=== PATIENT | female | born 1935 | race Caucasian/White ===

== ENCOUNTER 2017-06-30 07:45 | Inpatient (IN) | payer OTHER ==
[2017-08-03] MEDS ORDERED: Buffered Lidocaine 0.9% SYRIN* 5 ML/SYR SYRINGE INTRADERM ONE (13:21)
[2017-08-04] MEDS ORDERED: ceFAZolin 2 GM PREMIX (*) 2 GM/50 ML BAG IVPB ONE ×2 (06:44→14:28)
[2017-08-04] MEDS ORDERED: Buffered Lidocaine 0.9% SYRIN* 5 ML/SYR SYRINGE ONE (06:44)
[2017-08-04] MEDS ORDERED: Lidocaine 1% MPF wEPI 200,000* 30 ML SDV ONE (07:21)
[2017-08-04] MEDS ORDERED: Propofol* 10 MG/ML 20 ML BTL IV PUSH ONE ×3 (07:36→14:24)
[2017-08-04] MEDS ORDERED: Dexamethasone IV* 4 MG/ML 1 ML (4 MG) ONE (07:36)
[2017-08-04] MEDS ORDERED: fentaNYL* 50 MCG/ML 5 ML VIAL (250 MCG VIAL) ONE ×2 (07:36→12:49)
[2017-08-04] MEDS ORDERED: Succinylcholine* 20 MG/ML 10 ML VIAL ONE (07:36)
[2017-08-04] MEDS ORDERED: Midazolam* 1 MG/ML 2 ML VIAL (2 MG) ONE (07:37)
[2017-08-04] MEDS ORDERED: EPHEDrine (Pressors)* 50 MG/ML VIAL ONE (16:04)
[2017-08-04] MEDS ORDERED: Ondansetron INJ* 2 MG/ML VIAL ONE (16:04)
[2017-08-04] MEDS ORDERED: Magnesium Hydroxide LIQ* 30 ML UDC PO PRN (16:15)
[2017-08-04] MEDS ORDERED: Ondansetron INJ* 2 MG/ML VIAL IV PRN ×2 (16:15→17:01)
[2017-08-04] MEDS ORDERED: Acetaminophen TAB* 325 MG PO PRN (16:15)
[2017-08-04] MEDS ORDERED: fentaNYL* 50 MCG/ML 2 ML VIAL (100 MCG VIAL) IV PRN (17:01)
[2017-08-04] MEDS ORDERED: DiMENhydriNATE IV* 50 MG/ML VIAL IV PUSH PRN (17:01)
[2017-08-04] MEDS ORDERED: HYDROmorphone INJ* 1 MG/ML CARPUJECT SYRINGE IV PRN (17:01)
[2017-08-04] MEDS ORDERED: fentaNYL* 50 MCG/ML 2 ML VIAL (100 MCG VIAL) ONE (17:34)
[2017-08-04] MEDS: HYDROcodone/ACETAMIN 5-325 MG* 1 TAB PO PRN ×2 (18:55→23:06)
[2017-08-04] MEDS ORDERED: HYDROmorphone INJ* 2 MG/ML CARPUJECT SYRINGE IV SLOW PU PRN (19:02)
[2017-08-04] MEDS ORDERED: Cyclobenzaprine TAB* 10 MG PO PRN (19:06)
--- NOTE | 2017-08-04 19:56 | RAD ---
Edited for charges. INDICATION: Transforaminal lumbar interbody fusion. COMPARISON: C-arm fluoroscopy of the same date. TECHNIQUE: 6.23 seconds O arm fluoroscopy. 34.5 seconds C-arm fluoroscopy. FINDINGS: The OR and C-arm images document bilateral L4-L5 anterior and posterior spinal fusion. IMPRESSION: Procedural fluoroscopy. CPT II Codes: 6045F MTDD
[2017-08-05] MEDS: HYDROcodone/ACETAMIN 5-325 MG* 1 TAB PO PRN ×5 (03:29→21:19)
[2017-08-05] MEDS: Cetirizine* 10 MG TAB PO SCH (08:22)
[2017-08-05] MEDS: Losartan TAB* 25 MG PO SCH (08:22)
[2017-08-05] MEDS ORDERED: Aspirin EC Low Dose* 81 MG TAB.EC PO SCH (09:00)
--- NOTE | 2017-08-05 13:24 | PN ---
Progress Note - Progress Note Date of Service: 08/05/17 SOAP: Subjective: []No events ON. Patient is resting comfortably. Tolerates PO well. Ambulated to the bathroom. Left LE pain resolved. Objective: []VSS, Afebrile. Wound s,c,d. AAOx3, DEMETRIA, CN II-XII grossly intact. Motor 5/5 all extremities Sensory grossly intact to light touch. Assessment: []81 yof POD#1 Lt L4-5 MIS TLIF Plan: []Monitor VS, Neurochecks. Encourage ambulation. Brace ordered. Upright XR in brace. PT/OT DC planning Alfonso Dennis MD
--- NOTE | 2017-08-05 14:50 | RAD ---
Indication: 1 day postop L4-L5 fusion. Comparison: August 04, 2017 intraoperative spot images. June 15, 2017 Technique: Standing AP and lateral views lumbar sacral spine. Report: Postsurgical change of anterior and posterior L4-L5 fusion. Negative for spondylolisthesis at any level. Unchanged mild LEFT convex curve at the thoracic lumbar junction and RIGHT convex curve at the lumbar sacral junction. Negative for fracture. Unremarkable paraspinal soft tissue contours. The bladder fossa level surgical clips. IMPRESSION: Unremarkable standing AP and lateral views following L4-L5 anterior and posterior fusion.
--- NOTE | 2017-08-05 22:16 | OP ---
DATE OF OPERATION: 08/04/17 - ROOM #[id number] DATE OF : 39 SURGEON: Pablo Dennis MD ANESTHESIOLOGIST: Michael Terrell MD ANESTHESIA: General. PRE-OP DIAGNOSIS: Degenerative disk disease L4-5. POST-OP DIAGNOSIS: Degenerative disk disease L4-5. OPERATIVE PROCEDURE: The patient underwent a left minimally invasive L4-5 TLIF with PEEK interbody cage with autologous iliac bone graft DBX and intraoperative navigation and monitoring with L4, L5 pedicle screws. ESTIMATED BLOOD LOSS: 75 cc. COMPLICATIONS: None. SUMMARY: The patient is a very pleasant 81-year-old female with complaints of back pain radiating to the left lower extremity with MRI findings consistent with multilevel degenerative disk disease worse at L4-5 with severe left L4-5 neuroforaminal stenosis, far lateral dyskinesia and significant loss of disk height. After failing conservative treatment modalities, she was offered the option of surgical intervention. After explaining all expectations, limitation , possible complications of the procedure, with complications included but not limited to bleeding, infection, risk of injury to adjacent structures, paralysis , , need for additional procedures, anesthesia risk, stroke, blindness, cancer, instability, pseudoarthrosis, need for additional procedures, adjacent level disease, the patient and her agreed and informed consent was obtained. They also understood that her condition may not improve and in fact may get worse after the surgery and she may need to have additional procedure in the future. The case was done with the assistance of MIKE Ortiz, because of the complexity of the case. They also understood that intraoperative plan may be modified according to intraoperative findings and conditions. DESCRIPTION OF PROCEDURE: The patient was brought to the operating room and was placed under general anesthesia by the anesthesia team. She was carefully positioned prone on the Paulo frame and all bony prominences were meticulously padded. Her skin was prepped and draped in the standard fashion. After appropriate surgical pause and the patient identification, a small incision was made over the left iliac crest and a Corex trocar was used to harvest iliac bone graft. Through the same skin incision, the pane for the navigation star was secured and intraoperative OR imaging was obtained and the patient later was transferred to the navigation platform. The correct operative level was identified and a left paramedian incision was performed on the skin with the assistance of intraoperative navigation. The incision was carried down to the dorsal fascia with use of Bovie cautery. Over a series of dilators, the METRx tubular retractor was inserted and the position was confirmed with intraoperative monitoring. The intraoperative microscope was brought into the field and the left L4-5 facet as well as the left L4 and L5 transverse processes were visualized and exposed. High speed drill and Kerrison punches were used to perform a partial lateral facetectomy at L4-5 and exposure of the superior aspect of the pedicle of L4. The disk space was identified and was found to have a significant amount of calcification while lateral extruded disk fragment was removed with pituitary rongeurs. The annulus fibrosus was incised with a #15 surgical blade and after placement of a thin navigated osteotome into the disk space, the disk space was prepared with the use of a series of scrapers, dilators, and pituitary rongeurs, Kerrison punches, and curettes. After the diskectomy and the preparation of the disk space was performed, a series of trials were used and a 10 mm trial was found to be the most appropriate size for this case. A PEEK PTC Capstone Medtronic cage filled with autologous and local bone graft from the facetectomy as well as DBX putty was inserted after stereotactic navigation after the disk space was filled with the residual autologous bone graft and the DBX putty. Intraoperative fluoroscopic imaging confirmed excellent placement of the interbody cage and a second OM imaging was obtained, which also confirmed excellent placement of the hardware. The trajectories of the pedicle screws into the skin was then assessed with the use of intraoperative navigation and a right paramedian incision over these trajectories was performed after infiltrating the skin with local anesthetic. A navigated drill guide was introduced and under stereotactic navigation and confirmation of AP fluoroscopy, the pedicles of L4 and L5 were cannulated. After placement of guidewires, 6.5 x 45 mm Medtronic pedicle screws were inserted. Intraoperative OM imaging was then obtained and confirmed excellent placement of all hardware. Two cobalt chrome rods were then inserted through the same incisions and secured in place with screw head caps. Intraoperative fluoroscopic imaging confirmed excellent placement of all hardware. After removal of the pedicle screws extensions as well as the navigation star, the wounds were copiously irrigated and after confirmation of meticulous hemostasis and inspection of the wounds, the wounds were closed by layers with 0 interrupted Vicryl sutures to approximate the fascia and 2-0 interrupted Vicryl suture to approximate the subcutaneous tissue and 4-0 Monocryl to approximate the skin and subcuticular layer. The skin was then covered with Steri-Strips and sterile dressings. At the end of the procedure, all counts were reported to be correct. The patient remained hemodynamically stable throughout the case. She was then turned supine, was extubated and was transferred to Recovery in excellent condition. [id number]/[facility] #: [id number] [facility] HOSPITALRosette
[2017-08-06] MEDS: HYDROcodone/ACETAMIN 5-325 MG* 1 TAB PO PRN ×3 (02:46→10:24)
[2017-08-06] MEDS: Cetirizine* 10 MG TAB PO SCH (09:07)
[2017-08-06] MEDS: Losartan TAB* 25 MG PO SCH (09:07)
--- NOTE | 2017-08-06 10:39 | PN ---
Progress Note - Progress Note Date of Service: 08/06/17 SOAP: Subjective: []POD # 2 Doing well Pre op leg pain better C/O incisional pain Objective: []Neuro intact Dressing dry Has brace to wear Assessment: []Satis post op course Plan: []D/C today D/C instructions given
[2017-08-06 11:53] VITALS: BP 128/43
== END 2017-08-06 13:15 | disposition home or self-care (01) | DRG 304 ==
LOC: AA 08-04 06:45 → SSU 08-04 18:32
PROVIDERS: ADMIT Neurological Surgery; ATTEND Neurological Surgery
PROC: 0SG00AJ Fusion of Lumbar Vertebral Joint with Interbody Fusion Device, Posterior Approach, Anterior Column, Open Approach (ICD-10-PCS; principal; 2017-08-04 07:45)
DX: M48.062 Spinal stenosis, lumbar region with neurogenic claudication (principal); M41.9 Scoliosis, unspecified; M43.16 Spondylolisthesis, lumbar region; M51.16 Intervertebral disc disorders with radiculopathy, lumbar region; I10 Essential (primary) hypertension; K59.00 Constipation, unspecified; K31.9 Disease of stomach and duodenum, unspecified; Z88.1 Allergy status to other antibiotic agents; Z79.1 Long term (current) use of non-steroidal anti-inflammatories (NSAID); Z79.82 Long term (current) use of aspirin; Z79.899 Other long term (current) drug therapy
CPT/HCPCS: 72100; 76000; 76001; A9270-GY; J0330; J0690; J1100; J2001; J2250; J2405; J2704; J3010

== ENCOUNTER 2018-08-05 08:58 | Emergency (ER) | payer MEDICARE ==
[2018-08-05 09:14] VITALS: BP 114/71
--- NOTE | 2018-08-05 09:45 | UC ---
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 states she has had sinus infections befoere and sx are c/w prev dx. normally takes amox for this. no wheezing.. non- smoker. no asthma. tmaz 100. + chills. fatigue. glands swollen mildly in neck. + PND - History of Current Complaint Chief Complaint: UCGeneralIllness Stated Complaint: COUGH,SINUS COMPLAINT Time Seen by Provider: 08/05/18 09:20 Hx Last Menstrual Period: n/a Pain Intensity: 6 - Allergies/Home Medications Allergies/Adverse Reactions: Allergies Allergy/AdvReac Type Severity Reaction Status Date / Time ciprofloxacin AdvReac GI Upset Verified 08/05/18 09:10 PMH/Surg Hx/FS Hx/Imm Hx Previously Healthy: Yes Cardiovascular History: Hypertension Other History Of: Negative For: HIV, Hepatitis B, Hepatitis C, Anticoagulant Therapy - Surgical History Surgical History: Yes Surgery Procedure, Year, and Place: HYSTERECTOMY [place]. GALLBLADDER [place]. back surgery 2016 - Family History Known Family History: Negative: Respiratory Disease - no asthma - Social History Alcohol Use: None Substance Use Type: None Substance Use Comment - Amount & Last Used: tramadol Smoking Status (MU): Never Smoked Tobacco Have You Smoked in the Last Year: No - Immunization History Most Recent Influenza Vaccination: Fall 2013 Most Recent Pneumonia Vaccination: unknown but she says she has had it Review of Systems All Other Systems Reviewed And Are Negative: Yes Constitutional: Positive: Fever, Chills, Fatigue Skin: Positive: Negative Eyes: Positive: Negative ENT: Positive: Sore Throat, Ear Ache, Nasal Discharge, Sinus Congestion, Sinus Pain/Tenderness Respiratory: Positive: Cough - mild Cardiovascular: Positive: Negative Gastrointestinal: Positive: Negative Genitourinary: Positive: Negative Motor: Positive: Negative Neurovascular: Positive: Negative Musculoskeletal: Positive: Negative Neurological: Positive: Negative Psychological: Positive: Negative Is Patient Immunocompromised?: No Physical Exam Triage Information Reviewed: Yes Appearance: Ill-Appearing - mild. appears much younger than stated age Vital Signs: Initial Vital Signs Temp 98.2 F 08/05/18 09:09 Pulse 84 08/05/18 09:09 Resp 16 08/05/18 09:09 BP 114/71 08/05/18 09:09 Pulse Ox 100 08/05/18 09:09 Vital Signs Reviewed: Yes Eye Exam: Normal ENT: Positive: Pharyngeal erythema - mild, + PND, TMs normal, Hoarse voice, Sinus tenderness, Uvula midline. Negative: Tonsillar swelling, Tonsillar exudate Dental Exam: Normal Neck exam: Normal Neck: Positive: Supple, Nontender, No Lymphadenopathy Respiratory Exam: Normal Respiratory: Positive: Lungs clear, Normal breath sounds, No respiratory distress, No accessory muscle use. Negative: Crackles, Rhonchi, Stridor, Wheezing Cardiovascular Exam: Normal Cardiovascular: Positive: RRR, No Murmur, Pulses Normal, Brisk Capillary Refill Abdomen Description: Positive: Nontender, Soft Musculoskeletal Exam: Normal Neurological Exam: Normal Psychological Exam: Normal Skin Exam: Normal Throat Pain/Nasal Course/Dx - Differential Dx/Diagnosis Differential Diagnosis/HQI/PQRI: Pharyngitis, Sinusitis, Tonsillitis, URI Provider Diagnosis: Sinusitis Discharge - Sign-Out/Discharge Documenting (check all that apply): Patient Departure All imaging exams completed and their final reports reviewed: No Studies - Discharge Plan Condition: Stable Disposition: HOME Prescriptions: Amoxicillin PO (*) [Amoxicillin 875 MG (*)] 875 mg PO BID #20 tab Patient Education Materials: Sinusitis (ED) Referrals: Cory Sanford MD [Primary Care Provider] - 1 Week Additional Instructions: Continue taking the probiotic daily while you are on the antibiotics. Flonase nasal spray that is OTC may be helpful as well. - Billing Disposition and Condition Condition: STABLE Disposition: Home
== END 2018-08-05 09:55 | disposition home or self-care (01) ==
LOC: UCCORT 08:58
DX: J32.9 Chronic sinusitis, unspecified (principal); Z88.1 Allergy status to other antibiotic agents; I10 Essential (primary) hypertension
CPT/HCPCS: 99212; G0463

== ENCOUNTER 2019-02-25 15:30 | Emergency (ER) | payer MEDICARE ==
--- NOTE | 2019-02-25 15:46 | UC ---
Skin Complaint HPI - HPI Summary HPI Summary: Patient is a 83 year old female , who present today with wasp bite 1 hr [employer] on her right hand and the left ankle. Has swelling and pain locally . Denies any other symptoms- fever, chills, cough chest pain or shortness of breath . No diaphoresis. Denies any abdominal pain , nausea or vomiting , diarrhea or constipation. Her frient gave her 2 tab of benadryl. - History of Current Complaint Time Seen by Provider: 02/25/19 15:42 Stated Complaint: WASP BITE Hx Obtained From: Patient Hx Last Menstrual Period: n/a - Allergy/Home Medications Allergies/Adverse Reactions: Allergies Allergy/AdvReac Type Severity Reaction Status Date / Time ciprofloxacin AdvReac GI Upset Verified 02/25/19 15:48 PMH/Surg Hx/FS Hx/Imm Hx - Additional Past Medical History Additional PMH: Past Medical History: Past Surgical history: Family history: non contributory Social history; Non smoker, no alcohol use , no substance abuse. Previously Healthy: Yes Other History Of: Negative For: HIV, Hepatitis B, Hepatitis C, Anticoagulant Therapy - Surgical History Surgical History: Yes Surgery Procedure, Year, and Place: [place]ERECTOMY [place]. [place]. back surgery 2017 - Family History Known Family History: Positive: None, Non-Contributory Negative: Respiratory Disease - no asthma - Social History Alcohol Use: None Substance Use Type: None Substance Use Comment - Amount & Last Used: tramadol Smoking Status (MU): Never Smoked Tobacco Have You Smoked in the Last Year: No - Immunization History Most Recent Influenza Vaccination: Fall 2013 Most Recent Pneumonia Vaccination: unknown but she says she has had it Review of Systems All Other Systems Reviewed And Are Negative: Yes Constitutional: Positive: Negative Skin: Positive: Other - swelling and redness of the right hand and left ankle Eyes: Positive: Negative ENT: Positive: Negative Respiratory: Positive: Negative Cardiovascular: Positive: Negative Gastrointestinal: Positive: Negative Genitourinary: Positive: Negative Motor: Positive: Negative Neurovascular: Positive: Negative Musculoskeletal: Positive: Negative Neurological: Positive: Negative Psychological: Positive: Negative Is Patient Immunocompromised?: No Physical Exam - Summary Physical Exam Summary: Vital Signs Reviewed: Yes A+Ox3, no distress Eyes: Conjunctiva Clear ENT: Hearing grossly normal neck: supple Respiratory: Positive: No respiratory distress, No accessory muscle use Cardiovascular: skin color reflect adequate perfusion Musculoskeletal Exam: DARNELL x 4 without difficulty Neurological: Positive: Alert, ambulatory without difficulty Psychological: Positive: Normal Response To Family Skin: Positive: swelling and redness of the right hand at the index and middle finger- proximal phalanx and the index and middle finger PIP joint and left ankle- lateral aspect. Pain and limitation of the PIP and MCP joint of the PIP joint of the index and middle finger. Triage Information Reviewed: Yes Vital Signs Reviewed: Yes Course/Dx - Course Course Of Treatment: During the visit today, we discussed the findings . No sign of anaphyllaxis. 1 dose of solumedrol im and famotidine given, and further plan discussed. . I will prescribe the medication( zantac and prednisone) to the pharmacy . She will follow up with PCP - has an appointment tomorrow. Red flags discussed. Strict return precautions. Patient expressed understanding . - Diagnoses Provider Diagnosis: Wasp sting Discharge - Sign-Out/Discharge Documenting (check all that apply): Patient Departure All imaging exams completed and their final reports reviewed: No Studies - Discharge Plan Condition: Stable Disposition: HOME Prescriptions: predniSONE [Prednisone 20 MG TAB] 40 mg PO DAILY 5 Days #10 tablet Ranitidine TAB (NF) [Zantac TAB (NF)] 150 mg PO BID 7 Days #15 tab Patient Education Materials: Insect Bite or Sting (ED), Anaphylaxis (ED), Allergies (ED) Referrals: Croy Sanford MD [Primary Care Provider] - 1 Day Additional Instructions: Start taking prednisone and zantac as prescribed. Take benadryl 50 mg every 6 hrs as needed. Strict return precautions. Follow up with your primary care doctor tomorrow . Patients blood pressure slightly high in Urgent care today , plan follow up with PCP for better control within 1 month Return to Urgent care / ER if symptoms get worse. - Billing Disposition and Condition Condition: STABLE Disposition: Home
[2019-02-25 15:48] VITALS: BP 197/67
[2019-02-25] MEDS ORDERED: methylPREDNISolone 125 MG* 2 ML VIAL IM ONE (16:03)
[2019-02-25] MEDS ORDERED: Famotidine TAB* 20 MG PO ONE (16:04)
== END 2019-02-25 16:34 | disposition home or self-care (01) ==
LOC: UCCORT 15:30
DX: T63.461A Toxic effect of venom of wasps, accidental (unintentional), initial encounter (principal); M79.89 Other specified soft tissue disorders; M79.641 Pain in right hand; M25.572 Pain in left ankle and joints of left foot; Y92.9 Unspecified place or not applicable; Z88.1 Allergy status to other antibiotic agents
CPT/HCPCS: 96372; 99212; A9270-GY; G0463; J2930

== ENCOUNTER 2019-08-28 05:32 | Inpatient (IN) | payer MEDICARE, OTHER ==
[~2019-08-28 05:32] MED LIST: Buffered Lidocaine 1% SYRIN* 1 ML/SYRINGE INTRADERM ONE
--- OUTSIDE RECORDS SUMMARY | 2019-08-28 05:34 | XMS REPORT | Continuity of Care Document ---
:1935 External Reference #:[id number] Author Name Pablo Dennis MD (transmitted by agent of provider Cassie Azar ) Address [address] [place] [address] Care Team Providers Name Role Phone Cory Sanford MD - Internal Medicine Care Team Information Database Software Technician [phone] Problems Active Problems Provider Date Lumbar radiculopathy Germán Medrano M.D. Onset: 04/13/2017 Spinal stenosis of lumbar region Germán Medrano M.D. Onset: 04/27/2017 Scoliosis deformity of spine Germán Medrano M.D. Onset: 04/27/2017 Spinal stenosis, lumbar region without Germán Medrano M.D. Onset: 05/25/2017 neurogenic claudication Lumbar spondylolisthesis Pablo Dennis MD Onset: 06/15/2017 Displacement of lumbar intervertebral disc Pablo Dennis MD Onset: without myelopathy Stenosis of lateral recess of lumbar spine Pablo Dennis MD Onset: Thoracic and lumbosacral neuritis Pablo Dennis MD Onset: 08/02/2017 Neurogenic claudication Pablo Dennis MD Onset: 04/11/2019 Social History Type Date Description Comments Sex Unknown ETOH Use Denies alcohol use Tobacco Use Start: Unknown Patient has never smoked Recreational Drug Use Denies Drug Use Smoking Status Reviewed: 08/24/19 Patient has never smoked Exercise Type/Frequency Exercises sporadically Allergies, Adverse Reactions, Alerts Active Allergies Reaction Severity Comments Date Ciprofloxacin 04/08/2017 Medications Active Medications SIG Qnty Indications Ordering Provider Date Calcium & Magnesium 1 po qd Unknown 750-465mg Tablets Vitamin C 1 po bid 60units Unknown 500mg Chewtabs Vitamin D/Vitamin E 1 po qday Unknown Fish Oil 1 by mouth 180caps Unknown 1000mg Capsules twice a day DR Losartan Potassium 1 by mouth 90tabs Unknown 100mg every day Tablets Aspirin 1 by mouth Unknown 81mg Chewtabs every day Amelia Allergy 1 by mouth Unknown 180mg every day Tablets Colon Herbal Cleanser 1 po qday Unknown Capsules Tylenol 8 Hour one every 6 Unknown Arthritis Pain hours as needed 650mg for pains Tablets ER Furosemide 1 tab daily Cory Sanford MD 40mg Tablets Diclofenac Sodium 2 times daily Cory Sanford MD 75mg Tablets Hydralazine HCL 1 by mouth Unknown 10mg three times a Tablets day Citalopram 0.5 tab by Unknown Hydrobromide mouth every day 10mg Tablets Immunizations Description No Information Available Vital Signs Date Vital Result Comment 08/24/2019 12:56pm Height 63 inches 5'3" Weight 142.00 lb Heart Rate 64 /min BP Systolic 168 mmHg BP Diastolic 80 mmHg Pain Level 7 BMI (Body Mass Index) 25.2 kg/m2 07/09/2019 11:20am Height 63 inches 5'3" Weight 143.00 lb Heart Rate 64 /min BP Systolic 166 mmHg BP Diastolic 88 mmHg Respiratory Rate 16 /min Body Temperature 96.8 F Pain Level 7 O2 % BldC Oximetry 98 % BMI (Body Mass Index) 25.3 kg/m2 Results Test Acquired Date Facility Test Result H/L Range Note CBC No Diff 08/14/2019 [facility] White Blood 3.3 10^3/uL Low 3.5-10.[address] [place] [address] [phone] Red Blood Count 3.63 10^6/uL Low 3.70-4.87 Hemoglobin 11.8 g/dL Low 12.0-16.0 Hematocrit 34 % Low 35-47 Mean Corpuscular Volume 94 fL Normal 80-97 Mean Corpuscular Hemoglobin 33 pg High 27-31 Mean Corpuscular HGB Conc 35 g/dL Normal 31-36 Red Cell Distribution Width 13 % Normal 10-15 Platelet Count 279 10^3/uL Normal 150-450 Mean Platelet Volume 7.8 fL Normal 7.4-10.4 Inr/Protime 08/14/2019 [facility] Inr 0.96 Normal 0.82-1.09 1 [address] [place] [address] [phone] Laboratory test 08/14/2019 [facility] Partial 30.0 Normal 26.0 -38.[address] [place] [address] [place] [address] Time PTT [phone] Urinalysis 08/14/2019 [facility] Urine Color Yellow Profile [address] [place] [address] [phone] Urine Appearance Clear Urine Specific [place] 1.009 Low 1.010-1.030 Urine pH 7.0 Normal 5-9 Urine Urobilinogen Negative Negative Urine Ketones Negative Negative Urine Protein Negative Negative Urine Leukocytes Negative Negative Urine Blood Negative Negative * * Abnormal Negative 2 Urine Nitrite Negative Negative Urine Bilirubin Negative Negative Urine Glucose Negative Negative Basic Metabolic 08/14/2019 [facility] Sodium 134 mmol/L Low 135-[address] [place] [address] [phone] Potassium 4.3 mmol/L Normal 3.5-5.0 Chloride 98 mmol/L Low 101-111 Co2 Carbon Dioxide 29 mmol/L Normal 22-32 Anion Gap 7 mmol/L Normal 2-11 Glucose 97 mg/dL Normal 70-100 Blood Urea Nitrogen 24 mg/dL Normal 6-24 Creatinine 1.23 mg/dL High 0.51-0.95 BUN/Creatinine Ratio 19.5 Normal 8-20 Calcium 9.5 mg/dL Normal 8.6-10.3 Egfr Non- 41.9 >60 Egfr 50.7 >60 3 Type & Screen 08/14/2019 [facility] Patient Blood Type A Positive [address] [place] [address] [phone] Antibody Screen NEGATIVE 1 Standard intensity warfarin therapeutic range: 2.0-3.0 High intensity warfarin therapeutic range: 2.5-3.5 2 *Ascorbic acid is present which may interfere with detection of blood. 3 Because ethnic data is not always readily available, this report includes an eGFR for both -Americans and non- Americans. The National Kidney Disease Education Program (NKDEP) does not endorse the use of the MDRD equation for patients that are not between the ages of 18 and 70, are , have extremes of body size, muscle mass, or nutritional status, or are non- or non-. According to the National Kidney Foundation, irrespective of diagnosis, the stage of the disease is based on the level of kidney function: Stage Description GFR(mL/min/1.73 m(2)) 1 Kidney damage with normal or decreased GFR 90 2 Kidney damage with mild decrease in GFR 60-89 3 Moderate decrease in GFR 30-59 4 Severe decrease in GFR 15-29 5 Kidney failure <15 (or dialysis) Procedures Date Code Description Status 05/15/2019 350005307 Bone Mineral Density Test Completed Medical Devices Description No Information Available Encounters Type Date Location Provider Dx Diagnosis Office Visit 07/09/2019 [facility] M51.16 Intervertebral disc 11:[facility] MD disorders w radiculopathy, lumbar region M41.9 Scoliosis, unspecified M48.062 Spinal stenosis, lumbar region with neurogenic claudication Office 06/08/2019 [facility] M51.16 Intervertebral disc Visit 9:00a [facility] MD disorders w radiculopathy, lumbar region M48.062 Spinal stenosis, lumbar region with neurogenic claudication M41.9 Scoliosis, unspecified M43.16 Spondylolisthesis, lumbar region M51.16 Intervertebral disc disorders w radiculopathy, lumbar region Office 04/11/2019 [facility] M51.16 Intervertebral disc Visit 3:00p [facility] MD disorders w radiculopathy, lumbar region M48.062 Spinal stenosis, lumbar region with neurogenic claudication M41.9 Scoliosis, unspecified M43.16 Spondylolisthesis, lumbar region M51.16 Intervertebral disc disorders w radiculopathy, lumbar region Assessments Date Code Description Provider 07/19/2019 M51.16 Intervertebral disc disorders with Pablo Dennis MD radiculopathy, lumbar region 07/19/2019 M48.062 Spinal stenosis, lumbar region with Pablo Dennis MD neurogenic claudication 07/19/2019 M41.9 Scoliosis, unspecified Pablo Dennis MD 07/09/2019 M51.16 Intervertebral disc disorders with Pablo Dennis MD radiculopathy, lumbar region 07/09/2019 M41.9 Scoliosis, unspecified Pablo Dennis, 07/09/2019 M48.062 Spinal stenosis, lumbar region with Pablo Dennis , neurogenic claudication 06/08/2019 M51.16 Intervertebral disc disorders with Pablo Dennis MD radiculopathy, lumbar reg 06/08/2019 M48.062 Spinal stenosis, lumbar region with Pablo Dennis , neurogenic claudication 06/08/2019 M41.9 Scoliosis, unspecified Pablo Dennis, 06/08/2019 M43.16 Spondylolisthesis, lumbar region Pablo Dennis MD 06/08/2019 M51.16 Intervertebral disc disorders with Pablo Dennis MD radiculopathy, lumbar region 04/11/2019 M51.16 Intervertebral disc disorders with Pablo Dennis MD radiculopathy, lumbar reg 04/11/2019 M48.062 Spinal stenosis, lumbar region with Pablo Dennis MD neurogenic claudication 04/11/2019 M41.9 Scoliosis, unspecified Pablo Dennis, 04/11/2019 M43.16 Spondylolisthesis, lumbar region Pablo Dennis MD 04/11/2019 M51.16 Intervertebral disc disorders with Pablo Dennis MD radiculopathy, lumbar region Plan of Treatment Future Appointment(s):08/28/2019 7:30 am - Pablo Dennis MD at [facility]10/03/2019 8:30 am - Pablo Dennis MD at [facility]09/05/2019 12:30 pm - Pablo Dennis MD at [facility]12/07/2019 10:30 am - Pablo Dennis MD at [facility] Functional Status Description No Information Available Mental Status Description No Information Available Referrals Description No Information Available
--- OUTSIDE RECORDS SUMMARY | 2019-08-28 05:34 | XMS REPORT | Summary of Care ---
:1935 Author Organization [facility] Address [address] [place] [id number] Care Team Providers Name Role Phone Cory Sanford MD Primary Care Provider Reason for Visit Reason Comments New Patient Encounter Details Date Type Department Care Team Description 07/05/2019 Office Visit Aidee Jessica MD Polyarthralgia Rheumatology 90 [facility] (Primary Dx) [address] [place] [address] [address] [address] [place] [address] [phone] Allergies Active Allergy Reactions Severity Noted Date Comments Ciprofloxacin 05/24/2019 documented as of this encounter (statuses as of 07/05/2019) Medications Medication Sig Dispensed Refills Start Date End Date Status vitamin C (ASCORBIC Take 500 mg 0 Active ACID) 500 MG tablet by mouth Twice Daily aspirin 81 MG tablet Take 81 mg 0 Active by mouth daily [id number] Take by 0 Active TAMIN D PO mouth Twice Daily citalopram (CELEXA) Take 10 mg 0 Active 10 MG tablet by mouth daily diclofenac Take 50 mg 0 Active (VOLTAREN) 50 MG EC by mouth Two tablet times daily as needed fexofenadine Take 180 mg 0 Active (NIESHA) 180 MG by mouth tablet daily fluticasone 1 spray by 0 Active (FLONASE) 50 MCG/ACT Nasal route nasal spray daily hydrALAZINE Take 10 mg 0 Active (APRESOLINE) 10 MG by mouth tablet Three times daily as needed losartan (COZAAR) 50 Take 50 mg 0 Active MG tablet by mouth daily Probiotic Product Take by 0 Active (PROBIOTIC COLON mouth SUPPORT PO) CRANBERRY PO Take by 0 Active mouth Twice Daily vitamin E 400 UNIT Take 400 0 Discontinued (No capsule Units by 9 longer needed) mouth daily furosemide (LASIX) Take 40 mg 0 Discontinued (No 40 MG tablet by mouth as 9 longer needed) needed LORazepam (ATIVAN) Take 0.5 mg 0 Discontinued (No 0.5 MG tablet by mouth 9 longer needed) every 6 (six) hours as needed for Anxiety Cholecalciferol Take by 0 Discontinued (No (VITAMIN D PO) mouth daily 9 longer needed) documented as of this encounter (statuses as of 07/05/2019) Active Problems Problem Noted Date Polyarthralgia 07/05/2019 documented as of this encounter (statuses as of 07/05/2019) Social History Tobacco Use Types Packs/Day Years Used Date Never Smoker 0 Smokeless Tobacco: Never Used Tobacco Cessation: Counseling Given: No Alcohol Use Drinks/Week oz/Week Comments Never Alcohol Habits Answer Date Recorded How often do you have a drink containing alcohol? Never 05/24/2019 How many drinks containing alcohol do you have on a typical Not asked day when you are drinking? How often do you have six or more drinks on one occasion? Not asked Sex Assigned at Date Recorded Not on file Job Start Date Occupation Industry Not on file Not on file Not on file Travel History Travel Start Travel End No recent travel history available. documented as of this encounter Last Filed Vital Signs Vital Sign Reading Time Taken Comments Blood Pressure 148/80 07/05/2019 3:56 PM EST Pulse 70 07/05/2019 3:56 PM EST Temperature 36.6 07/05/2019 3:56 PM EST C (97.9 F) Respiratory Rate 15 07/05/2019 3:56 PM EST Oxygen Saturation 96% 07/05/2019 3:56 PM EST Inhaled Oxygen Concentration - - Weight 71.7 kg (158 lb) 07/05/2019 3:56 PM EST Height 160 cm (5' 3") 07/05/2019 3:56 PM EST Body Mass Index 27.99 07/05/2019 3:56 PM EST documented in this encounter Progress Notes Aidee Peña MD - 07/05/2019 12:45 PM EST Subjective: Patient ID: Funmilayo Gray is a 83 y.o. female. HPI Patient's medications, allergies, past medical, surgical, social and family histories were reviewed and updated as appropriate. This is initial rheumatology consult requested by primary care doctor for diagnosis and management of left knee pain. Dictation on: 07/05/2019 4:00 PM by: AIDEE PEÑA [[id number]] Daughter has rheumatoid arthritis. Review of Systems Per HPI. Review of complete ROS is negative. Denies skin rash, oral ulcer, chest pain, SOB, abdominal pain, diarrhea, constipation, dysuria, hematuria, headache. Denies photosensitivity and Raynaud' s. Past Medical History: Diagnosis Date Anxiety Arthritis Depression GERD (gastroesophageal reflux disease) Hypertension Past Surgical History: Procedure Laterality Date BREAST SURGERY HYSTERECTOMY SPINE SURGERY Family History Problem Relation Age of Onset Heart disease Father Cancer Mother Social History Tobacco Use Smoking status: Never Smoker Smokeless tobacco: Never Used Substance Use Topics Alcohol use: Never Frequency: Never Drug use: Never Ciprofloxacin Current Outpatient Medications Medication Sig Dispense Refill aspirin 81 MG tablet Take 81 mg by mouth daily RHRODYS-THYPIEDRI-[id number] D PO Take by mouth Twice Daily citalopram (CELEXA) 10 MG tablet Take 10 mg by mouth daily CRANBERRY PO Take by mouth Twice Daily diclofenac (VOLTAREN) 50 MG EC tablet Take 50 mg by mouth Two times daily as needed fexofenadine (NIESHA) 180 MG tablet Take 180 mg by mouth daily fluticasone (FLONASE) 50 MCG/ACT nasal spray 1 spray by Nasal route daily hydrALAZINE (APRESOLINE) 10 MG tablet Take 10 mg by mouth Three times daily as needed losartan (COZAAR) 50 MG tablet Take 50 mg by mouth daily Probiotic Product (PROBIOTIC COLON SUPPORT PO) Take by mouth vitamin C (ASCORBIC ACID) 500 MG tablet Take 500 mg by mouth Twice Daily Cholecalciferol (VITAMIN D PO) Take by mouth daily furosemide (LASIX) 40 MG tablet Take 40 mg by mouth as needed LORazepam (ATIVAN) 0.5 MG tablet Take 0.5 mg by mouth every 6 (six) hours as needed for Anxiety vitamin E 400 UNIT capsule Take 400 Units by mouth daily No current facility-administered medications for this visit. Objective: Physical Exam Visit Vitals BP 148/80 Pulse 70 Temp 36.6 C (97.9 F) (Tympanic) Resp 15 Ht 1.6 m (5' 3") Wt 71.7 kg (158 lb) SpO2 96% BMI 27.99 kg/m HEENT: no facial erythema, hearing grossly intact. Chest exam: clear to auscultation, no wheezing orcrackles. Good airway entry. Heart exam: regular rate and rhythm, S1, S2 present, no murmur, rub, gallop. Extremities no cyanosis , clubbing or edema. Neuro exam: AAO*3, no focal deficits. Skin exam: Nopsoriasis or vasculitis skin rash. Joint exam: No active synovitis in both upper and lower extremityjoints except both knees mild crepitus. Lower back 2 vertical surgical scar. Very limited ROM. Data reviewed: I personally reviewed old chart, labs in Epic, note and other clinical date from her PCP office. Assessment: 1. Left leg and knee pain. Knee OA vs radiculopathy. Family history of RA. 2. Severe lower back pain. S/P back surgery in 08/2017. Pending another surgery. 3. HTN. 4. Osteoporosis. Plan: - Funmilayo was seen today for new patient. Diagnoses and all orders for this visit: Polyarthralgia - JOSE; Future - JOSE Specificity; Future - Rheumatoid factor; Future - CCP antiBody; Future - Sedimentation rate, automated; Future - Comprehensive Metabolic Panel; Future - CBC and Differential; Future - CBC and Differential - Comprehensive Metabolic Panel - Sedimentation rate, automated - CCP antiBody - Rheumatoid factor - JOSE Specificity - JOSE - Will discuss further management on next visit. - Activities as tolerated. - Diet: Paleo diet ( no sugar, no diary, low carb diet) , more greens/vegetables , adequate hydration. - Encouraged to maintain good sleep hygiene. - Continue other medications as prescribed by PCP and other specialist. - RV based on results; above findings, analysis and plan were all discussed with the patient and questions were answered as much as possible. Thanks for the consult. documented in this encounter Plan of Treatment Name Type Priority Associated Diagnoses Order Schedule JOSE Lab Routine Polyarthralgia 1 Occurrences starting 07/05/2019 until 01/05/2020 JOSE Specificity Lab Routine Polyarthralgia 1 Occurrences starting 07/05/2019 until 01/05/2020 Rheumatoid factor Lab Routine Polyarthralgia 1 Occurrences starting 07/05/2019 until 01/05/2020 CCP antiBody Lab Routine Polyarthralgia 1 Occurrences starting 07/05/2019 until 01/03/2020 Sedimentation rate, Lab Routine Polyarthralgia 1 Occurrences starting automated 07/05/2019 until 01/05/2020 Comprehensive Metabolic Lab Routine Polyarthralgia 1 Occurrences starting Panel 07/05/2019 until 01/05/2020 CBC and Differential Lab Routine Polyarthralgia 1 Occurrences starting 07/05/2019 until 01/05/2020 documented as of this encounter Results Not on filedocumented in this encounter Visit Diagnoses Diagnosis Polyarthralgia - Primary Pain in joint, multiple sites documented in this encounter
--- OUTSIDE RECORDS SUMMARY | 2019-08-28 05:34 | XMS REPORT | Continuity of Care Document ---
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 Active Problems Provider Date Lumbar radiculopathy [...] Use Denies Drug Use Smoking Status Reviewed: 07/09/19 Patient has never smoked Exercise Type/Frequency Exercises [...] Available Vital Signs Date Vital Result Comment 07/09/2019 11:20am Height 63 inches 5'3" Weight 143.00 lb Heart Rate 64 /min BP Systolic 166 mmHg BP Diastolic 88 mmHg Respiratory Rate 16 /min Body Temperature 96.8 F Pain Level 7 O2 % BldC Oximetry 98 % BMI (Body Mass Index) 25.3 kg/m2 06/08/2019 9:04am Height 63 inches 5'3" Weight 148.00 lb Heart Rate 78 /min BP Systolic Sitting 156 mmHg BP Diastolic Sitting 70 mmHg BMI (Body Mass Index) 26.2 kg/m2 Results Description No Information Available Procedures Date Code Description Status 05/15/2019 [id number] Bone Mineral Density Test Completed Medical Devices Description No Information Available Encounters Type Date Location Provider Dx Diagnosis Office Visit 06/08/2019 [facility] M51.16 Intervertebral disc 9:00a [facility] MD disorders w radiculopathy, lumbar region M48.062 Spinal stenosis, lumbar region with neurogenic claudication M41.9 Scoliosis, unspecified M43.16 Spondylolisthesis, lumbar region M51.16 Intervertebral disc disorders w radiculopathy, lumbar region Office 04/11/2019 [facility] M51.16 Intervertebral disc Visit 3:00p [facility] MD Jeannie disorders w radiculopathy, lumbar region M48.062 Spinal stenosis, lumbar region with neurogenic claudication M41.9 Scoliosis, unspecified M43.16 Spondylolisthesis, lumbar region M51.16 Intervertebral disc disorders w radiculopathy, lumbar region Assessments Date Code Description Provider 07/09/2019 M51.16 Intervertebral disc disorders with Pablo Dennis MD radiculopathy, lumbar region 07/09/2019 M41.9 Scoliosis, unspecified Pablo eDnnis MD 07/09/2019 M48.062 Spinal stenosis, lumbar region with Pablo Dennis MD neurogenic claudication 06/08/2019 M51.16 Intervertebral disc disorders with Pablo Dennis MD radiculopathy, lumbar reg 06/08/2019 M48.062 Spinal stenosis, lumbar region with Pablo Dennis MD neurogenic claudication 06/08/2019 M41.9 Scoliosis, unspecified Pablo Dennis MD 06/08/2019 M43.16 Spondylolisthesis, lumbar region Pablo Dennis MD 06/08/2019 M51.16 Intervertebral disc disorders with Pablo Dennis MD radiculopathy, lumbar region 04/11/2019 M51.16 Intervertebral disc disorders with Pablo Dennis MD radiculopathy, lumbar reg 04/11/2019 M48.062 Spinal stenosis, lumbar region with Pablo Dennis MD neurogenic claudication 04/11/2019 M41.9 Scoliosis, unspecified Pablo Dennis MD 04/11/2019 M43.16 Spondylolisthesis, lumbar region Pablo Dennis MD 04/11/2019 M51.16 Intervertebral disc disorders with Pablo Dennis MD radiculopathy, lumbar region Plan of Treatment Future Appointment(s):12/07/2019 10:30 am - Pablo Dennis MD at [facility]07/09/2019 - Pablo Dennis MDM51.16 Intervertebral disc disorders w radiculopathy, lumbar regionFollow up:RV one week, one month, three months,M41.9 Scoliosis, [id number] Spinal stenosis, lumbar region with neurogenic claudication Functional Status Description No Information Available Mental Status Description No Information Available Referrals Description No Information Available
--- OUTSIDE RECORDS SUMMARY | 2019-08-28 05:34 | XMS REPORT | Summary of Care ---
:1935 Author Organization [facility] Address [address] [facility] [place] [address] Care Team Providers Name Role Phone ChelseaCory alberts Primary Care Provider Valentine Puente RN [employer] Contacts Adjuster Unavailable Reason for Visit Reason Comments Pre-Op Exam here for medical clearance for spinal surgery on 08/28/18 at [facility] by Dr. Dennis. EKG, blood work and chest xray done at [facility] Hypertension f/u BP Encounter Details Date Type Department Care Team Description 08/20/2019 Office Visit [facility] Cory Sanford, Intervertebral disc disorder with radiculopathy of lumbar region (Primary Dx); Medicine HTN (hypertension), benign; [address] [facility] Chronic renal insufficiency, stage 2 (mild); [place] [address] ROAD Tear of lateral meniscus of left knee, current, unspecified tear type, subsequent encounter; [phone] [place], [place] Hypercholesterolemia [id number] [phone] Allergies Active Allergy Reactions Severity Noted Date Comments Ciprofloxacin Hcl GI Reaction 11/04/2010 documented as of this encounter (statuses as of 08/20/2019) Medications Medication Sig Dispensed Refills Start Date End Date Status [id number] Take by 0 Active TAMIN D PO mouth TWICE DAILY. Cholecalciferol Take by 0 Active (VITAMIN D PO) mouth DAILY. ascorbic acid 500 MG Take 500 mg 0 Active Oral Tab by mouth TWICE DAILY. Probiotic Product Take by 0 Active (PROBIOTIC COLON mouth SUPPORT PO) DAILY. fexofenadine Take 180 mg 0 Active (NIESHA ALLERGY) by mouth 180 MG Oral Tab DAILY. Aspirin 81 MG Oral Take 81 mg 0 Active Tab by mouth DAILY. fluticasone Ovalo 2 1 Bottle 5 09/07/2017 Active (FLONASE) 50 MCG/ACT Sprays in Nasal Suspension nose DAILY NEEDED (for congestion) . diclofenac Take 1 Tab 60 Tab 3 04/13/2019 Active (VOLTAREN) 50 MG by mouth Oral Tab EC TWO TIMES DAILY NEEDED (back pain). hydrALAZINE Take 1 Tab 90 Tab 5 05/17/2019 Active (APRESOLINE) 10 MG by mouth Oral Tab THREE TIMES DAILY. losartan (COZAAR) 50 Take 2 Tabs 180 Tab 3 06/21/2019 Active MG Oral Tab by mouth DAILY. CRANBERRY PO Take by 0 Active mouth. furosemide (LASIX) Take 1 Tab 30 Tab 5 04/09/2019 Discontinued 40 MG Oral Tab by mouth 0 (Patient stopped DAILY the medication) NEEDED (leg swelling). citalopram (CELEXA) Take 1 Tab 30 Tab 5 06/19/2019 Discontinued 20 MG Oral Tab by mouth 0 (Patient stopped DAILY. the medication) LORazepam (ATIVAN) Take 1 Tab 20 Tab 0 06/19/2019 Discontinued 0.5 MG Oral Tab by mouth 0 (Patient stopped EVERY FOUR the medication) HOURS NEEDED (anxiety). Max Daily Amount: 3 mg. documented as of this encounter (statuses as of 08/20/2019) Active Problems Problem Noted Date Polyarthralgia 07/05/2019 BMI 27.0-27.9,adult 07/12/2012 Overview: This patient's BMI has been calculated and is above average, and BMI management plan is completed. General patient education discussion including: obesity-related excess mortality, weight loss link to reduction of risk factors for cardiac and other diseases, importance of long-term maintenance treatment in weight loss Referral to scientific linguist. HTN (hypertension), benign 05/13/2011 Lumbosacral Spondylosis 10/09/2007 Hypercholesterolemia 10/09/2007 GERD (gastroesophageal reflux disease) documented as of this encounter (statuses as of 08/20/2019) Immunizations Name Administration Dates Next Due Adacel TdaP 08/01/2005 H1N1 Injectable Adult 08/06/2009 Influenza (IM) Preservative Free 04/26/2013, 05/18/2012, 06/09/2011, 04/21/2009 Influenza Vaccine High Dose 04/17/2019, 04/25/2018, 05/10/2017, 04/13/2016, 04/24/2015, 05/07/2014 Influenza Vaccine Whole 05/10/2017, 05/16/2008 Influenza Virus Vaccine Pres Free 6-35 05/05/2010 Months PNEUMOCOCCAL POLYSACCHARIDE VACCINE 09/28/2010 Pneumococcal Conjugate(13 Valent) 06/11/2015 ZOSTER (ZOSTAVAX) VACCINE 10/28/2014 documented as of this encounter Social History Tobacco Use Types Packs/Day Years Used Date Never Smoker Smokeless Tobacco: Never Used Alcohol Use Drinks/Week oz/Week Comments No 0 Standard drinks or equivalent 0.0 Sex Assigned at Date Recorded Not on file Job Start Date Occupation Industry Not on file Not on file Not on file Travel History Travel Start Travel End No recent travel history available. documented as of this encounter Last Filed Vital Signs Vital Sign Reading Time Taken Comments Blood Pressure 148/58 08/20/2019 1:55 PM EST Pulse 70 08/20/2019 1:55 PM EST Temperature - - Respiratory Rate - - Oxygen Saturation 98% 08/20/2019 1:55 PM EST Inhaled Oxygen Concentration - - Weight 67.6 kg (149 lb) 08/20/2019 1:55 PM EST Height 160 cm (5' 3") 08/20/2019 1:55 PM EST Body Mass Index 26.39 08/20/2019 1:55 PM EST documented in this encounter Patient Instructions Patient InstructionsCory Sanford MD - 08/20/2019 2:10 PM ESTYou are medically stable and can proceed with spinal surgery. Because kidney function was slightly diminished, avoid use of anti-inflammatory pain medicine, like ibuprofen and naproxen or diclofenac. Use tylenol instead, which is safer for the kidneys. Your MRI showed a tear of the lateral meniscus of the left knee follow up after the spinal surgery documented in this encounter Progress Notes Cory Sanford MD - 08/20/2019 2:10 PM EST PATIENT: Funmilayo Gray : 1935 DATE OF SERVICE: 08/20/2019 CHIEF COMPLAINT: Chief Complaint Patient presents with Pre-Op Exam here for medical clearance for spinal surgery on 08/28/18 at [facility] by Dr. Dennis. EKG, blood workand chest xray done at [facility] Hypertension f/u BP Subjective HISTORY OF PRESENT ILLNESS: Funmilayo Gray is a 83-y.o. female. HPI She is to have spine surgery with Dr Dennis. This will consist of left L3- 4 possible L2-3 with PEEK interbody cage, with iliac crest bone graft, DBX, pedicle screws and possible osteotomies and revision of prior instrumentation. She has never had a problem with anesthesia or sedation. No recent febrile illness. Had 3 gel shots in the left knee with Dr Mercado in [place]. MRI knee done in July in [place] showed a small tear of the posterior horn of the lateral meniscus. 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 She had work-up with black topper Dr. Peña, but no inflammatory or autoimmune condition was determined. In preparation for the spinal surgery, she had lab work at [facility] showing mild anemia with H&H 11.8 and 34. White count 3300, platelets 279, 000. INR and PTT within normal limits serum chemistries unremarkable except for creatinine 1.23 with estimated GFR of 41.9. Urinalysis was negative A chest x-ray showed "elevated lung volumes and both diffuse mild prominence of the interstitial markings and patchy rarefaction of the mid to upper lung zone interstitial markings. The heart, pulmonary vasculature, and mediastinal contours were unremarkable. Gallbladder fossa level surgical clips were seen." The impression was that there were stigmata of probable obstructive lung disease but no acute pulmonary or cardiac process. An EKG showed sinus rhythm, low voltage in the extremity leads. There were no significant changes from the prior tracing done July 29, 2017 Past Medical History: Diagnosis Date GERD (gastroesophageal reflux disease) History of breast surgery hx r ana bx yrs ago Hypercholesterolemia 10/09/2007 Lumbosacral Spondylosis 10/09/2007 Postmenopausal Family History Problem Relation Age of Onset Heart Father 85 [place] Heart Brother 80 [place] Current Outpatient Medications Medication Sig ascorbic acid 500 MG Oral Tab Take 500 mg by mouth TWICE DAILY. Aspirin 81 MG Oral Tab Take 81 mg by mouth DAILY. [id number]-[id number] D PO Take by mouth TWICE DAILY. Cholecalciferol (VITAMIN D PO) Take by mouth DAILY. CRANBERRY PO Take by mouth. diclofenac (VOLTAREN) 50 MG Oral Tab EC Take 1 Tab by mouth TWO TIMES DAILY NEEDED (back pain). fexofenadine (NIESHA ALLERGY) 180 MG Oral Tab Take 180 mg by mouth DAILY. fluticasone (FLONASE) 50 MCG/ACT Nasal Suspension Ovalo 2 Sprays in nose DAILY NEEDED (forcongestion). hydrALAZINE (APRESOLINE) 10 MG Oral Tab Take 1 Tab by mouth THREE TIMES DAILY. losartan (COZAAR) 50 MG Oral Tab Take 2 Tabs by mouth DAILY. Probiotic Product (PROBIOTIC COLON SUPPORT PO) Take by mouth DAILY. No current facility-administered medications for this visit. Allergies Allergen Reactions Ciprofloxacin Hcl GI Reaction Social History Socioeconomic History Marital status: Spouse name: Not on file Number of children: Not on file Years of education: Not on file Highest education level: Not on file Occupational History Not on file Social Needs Financial resource strain: Not on file Food insecurity Worry: Not on file Inability: Not on file Transportation needs Medical: Not on file Non-medical: Not on file Tobacco Use Smoking status: Never Smoker Smokeless tobacco: Never Used Substance and Sexual Activity Alcohol use: No Alcohol/week: 0.0 standard drinks Drug use: No Sexual activity: Not on file Lifestyle Physical activity Days per week: Not on file Minutes per session: Not on file Stress: Not on file Relationships Social connections Talks on phone: Not on file Gets together: Not on file Attends hinduism service: Not on file Active member of club or organization: Not on file Attends meetings of clubs or organizations: Not on file Relationship status: Not on file Intimate partner violence Fear of current or ex partner: Not on file Emotionally abused: Not on file Physically abused: Not on file Forced sexual activity: Not on file Other Topics Concern Back Care Not Asked Bike Helmet Not Asked Blood Transfusions Not Asked Caffeine Concern Not Asked Exercise Not Asked Hobby Hazards Not Asked International Travel Not Asked Service Not Asked Occupational Exposure Not Asked Seat Belt Not Asked Self-Exams Not Asked Sleep Concern Not Asked Special Diet Not Asked Stress Concern Not Asked Weight Concern Not Asked Social History Narrative Not on file REVIEW OF SYSTEMS: Review of Systems Constitutional: Negative for malaise/fatigue and weight loss. HENT: Negative for congestion, hearing loss and sore throat. Eyes: Negative for blurred vision. Respiratory: Negative for shortness of breath. Cardiovascular: Negative for chest pain. Gastrointestinal: Negative for abdominal pain. Genitourinary: Negative for frequency. Musculoskeletal: Positive for back pain and joint pain. Skin: Negative for rash. Neurological: Negative for dizziness. Endo/Heme/Allergies: Negative for polydipsia. Psychiatric/Behavioral: Negative for depression. The patient does not have insomnia. Objective PHYSICAL EXAM: VITALS: BP (!) 148/58 (BP Location: Left arm, Patient Position: Sitting) | Pulse 70 | Ht 5' 3" (1.6 m) | Wt 149 lb (67.6 kg) | SpO2 98% | BMI 26.39 kg/ m Body mass index is 26.39 kg/m. Physical Exam Physical exam reveals a woman in no acute distress. Vitals as above. HEENT: Normocephalic, atraumatic. DEMETRIA, EOMI. Mouth and ears unremarkable except for wax in both ears. Neck: No palpable lymphadenopathy in the submandibular, submental, anterior cervical, posteriorcervical, or occipital chains, nor in the supraclavicular spaces. No JVD, thyromegaly. LUNGS: clear. HEART: Regular rate and rhythm. No murmurs, rubs, or gallops. ABDOMEN: positive bowel sounds, soft, nontender, no hepatosplenomegaly, masses or bruits. EXTREMITIES: no cyanosis, clubbing, or edema. Distal radial, dorsalis pedis, and posterior tibial pulses are intact. SKIN: no suspicious rashes or lesions. MUSCULOSKELETAL: no acutely inflamed joints. Lumbar spine mildly diffusely tender to percussion. Has to make position changes very carefully so as not to hurt her back. Left knee with degenerative changes. NEURO: Alert and oriented, cranial nerves II through XII grossly intact. No focal motor, sensory, or cerebellar findings. Gait and stance within normal limits. ASSESSMENT / IMPRESSION: ICD-9-CM ICD-10-CM 1. Intervertebral disc disorder with radiculopathy of lumbar region medically stable and can proceed with another spinal surgery. The spinal surgery was related to a work injury. 724.4 M51.16 2. HTN (hypertension), benigncontrolled 401.1 I10 3. Chronic renal insufficiency, stage 2 (mild)stable, but should avoid NSAIDs including ibuprofen, naproxen or diclofenac 585.2 N18.2 4. Tear of lateral meniscus of left knee, current, unspecified tear type, subsequent encounterwatch for now. V58.89 S83.282D 836.1 5. Hypercholesterolemia- The patient is asked to improve diet and exercise patterns to aid in medical management of this. 272.0 E78.00 Patient Instructions You are medically stable and can proceed with spinal surgery. Because kidney function was slightly diminished, avoid use of anti-inflammatory pain medicine, like ibuprofen and naproxen or diclofenac. Use tylenol instead, which is safer for the kidneys. Your MRI showed a tear of the lateral meniscus of the left knee follow up after the spinal surgery CC: Dr Dennis Author: Cory Sanford MD 08/20/2019 14:18 documented in this encounter Plan of Treatment Health Maintenance Due Date Last Done Comments DTaP/Tdap/Td Vaccines ( - 1946 Tdap) ZOSTER IMMUNIZATION SERIES 12/23/2014 10/28/2014 (2 of 3) MEDICARE ANNUAL WELLNESS 01/29/2016 01/28/2015 (Previously VISIT completed) DEPRESSION SCREENING 04/23/2020 04/23/2019, 04/23/2019 FALL RISK ASSESSMENT 08/20/2020 08/20/2019, 08/20/2019 PNEUMOCOCCAL 65+YRS Completed 06/11/2015, 09/28/2010 INFLUENZA VACCINE Completed 04/17/2019, 04/25/2018, 05/10/2017, Additional history exists HEPATITIS A IMMUNIZATION Aged Out No longer eligible SERIES based on patient's age to complete this topic HPV IMMUNIZATION SERIES Aged Out No longer eligible based on patient's age to complete this topic MENINGOCOCCAL VACCINE IMM Aged Out No longer eligible based on patient's age to complete this topic documented as of this encounter Goals Goal Patient Goal Associated Recent Patient-Stated? Author Type Problems Progress Blood Pressure Blood Pressure HTN 148/58 Erica Sanford, < 140/90 (hypertension), (08/20/2019 MD Cory benign 1:55 PM EST) Note: Hypertension Care Plan Based on the patient's clinical history and according to JNC 8 guidelines target blood pressure goal is less than 140/90. Based on the patient's last blood pressure of BP: 122/70 mmHg the patient is at at goal. As your provider, it is important that I advise you regarding: your current medications and help you with any challenges you may face taking your medications as directed (ex. instructions, cost, side effects, and interactions). Important lifestyle changes: exercise, weight reduction, diet, dietary sodium reduction and medication compliance your clinical goals and how you can achieve success: weight reduction, exercise plan and diet improvements medication management: adjusted medications as appropriate patient education/self-management tools provided: Current self-management tools adequate To successfully manage my Hypertension I will: monitor my blood pressure daily, understanding that my goal is less than 140/ 90 per my healthcare provider's recommendation. I will schedule an appointment with my provider if consistent abnormal readings greater than 160/100. take medications every day as prescribed by my healthcare provider and if unable to take them I will discuss with my provider. monitor for symptoms of chest pain, chest tightness/pressure, irregular heartbeat, persistent dizziness, radiating arm pain, and neck or jaw pain. If any of these symptoms are noticed I will seek medical attention immediately by calling 911 exercise/walk 45 minutes 5 day(s) per week. If I experience chest pain, chest tightness, or shortness of breath, I will seek medical attention immediately. follow a diet rich in fruits, vegetables, and low-fat dairy products with reduced content of saturated & total fat. I will reduce my sodium intake daily. An example is the DASH diet. To obtain more information please refer to the DASH Eating Plan listed in Educational Resources. record my blood pressure results. [employer] is safe and secure way for you to do this in your medical record online. try to obtain an ideal body weight. My recent weight was Weight: 150 lb ( 68.04 kg). My weight loss goal for my next office visit is 145 lbs. limit alcohol consumption. For men two drinks per day and women one drink per day. if currently smoking, will discuss how to quit smoking with my healthcare provider and work towards quitting. Educational Resources: National Heart, Lung, & Blood [place] http://nhlbi.nih.gov/hbp/index.html The DASH Diet Eating Plan http://www.nhlbi.nih.gov/health/health-topics/ topics/dash/ Academy of Nutrition & DIetetics http://eatright.org National Smoking Cessation Site http://smokefree.gov Blood Pressure < Blood Pressure 148/58 (08/20/2019 1:55 No Cory Sanford MD 140/90 PM EST) Note: This is an individualized treatment (blood pressure) goal for Funmilayo Gray: Displayed above (on the left) is your goal for blood pressure control. Your most recent blood pressure is also shown above, on the right. You should try to achieve blood pressures that are lower than your goal listed above (on the left). Take all prescribed medications as directed Self-management Cory Rosario MD Note: This is an individualized self-management goal for Funmilayo Gray: Please take all prescribed medications as directed. 1. Do not skip doses. If you cannot afford your medications, talk with your doctor. 2. Use a pill reminder system such as a pill box if needed. Your pharmacist can help you with this. 3. Contact your Pharmacy 5 days before your medication runs out. If you cannot take your medications for any reasons, talk with your doctor. 4. Please bring all of your medication bottles and inhalers (or a list of all your medications/inhalers) with you to every visit. Potential barriers to meeting all of your care plan goals will continue to be addressed on an ongoing basis. documented as of this encounter Results Not on filedocumented in this encounter Visit Diagnoses Diagnosis Intervertebral disc disorder with radiculopathy of lumbar region Thoracic or lumbosacral neuritis or radiculitis, unspecified HTN (hypertension), benign Essential hypertension, benign Chronic renal insufficiency, stage 2 (mild) Tear of lateral meniscus of left knee, current, unspecified tear type, subsequent encounter Hypercholesterolemia Pure hypercholesterolemia documented in this encounter Insurance Payer Benefit Plan / Subscriber ID Effective Dates Phone Address Type Group [employer] [place] [employer] xxxxxxxx-xx 1998-[employer] [facility] [place] xxxxxxxx-xx 1998-Present Workers Comp COMP [facility] GENERIC [phone] [id number] (Work) documented as of this encounter
[2019-08-28] MEDS ORDERED: Lactated Ringers 1000 ML Bag* 1,000 ML IV SCH ×2 (06:00→15:00)
[2019-08-28] MEDS ORDERED: Acetaminophen TAB* 325 MG PO ONE (06:00)
[2019-08-28] MEDS ORDERED: Gabapentin CAP(*) 300 MG PO ONE (06:00)
[2019-08-28] MEDS ORDERED: Gabapentin CAP(*) 300 MG ONE (06:21)
[2019-08-28] MEDS ORDERED: ceFAZolin 2 GM PREMIX in ORs 2 GM/50 ML BAG ONE (06:21)
[2019-08-28] MEDS ORDERED: Acetaminophen TAB* 325 MG ONE (06:21)
[2019-08-28] MEDS ORDERED: Bacitracin INJECTION* 50,000 UNITS ONE ×2 (06:57→11:32)
[2019-08-28] MEDS ORDERED: Bupivacaine 0.25% EPI 200,000* 30 ML SDV ONE (06:57)
[2019-08-28] MEDS ORDERED: Artificial Tear OPHTH.OINT* 3.5 GM ONE (07:02)
[2019-08-28] MEDS ORDERED: Rocuronium* 10 MG/ML VIAL ONE ×2 (07:03→07:05)
[2019-08-28] MEDS ORDERED: Propofol* 10 MG/ML 20 ML BTL ONE (07:05)
[2019-08-28] MEDS ORDERED: Lidocaine 2% PF * 5 ML VIAL ONE (07:05)
[2019-08-28] MEDS ORDERED: fentaNYL* 50 MCG/ML 5 ML VIAL (250 MCG VIAL) ONE (07:05)
[2019-08-28] MEDS ORDERED: Midazolam* 1 MG/ML 2 ML VIAL (2 MG) ONE (07:05)
[2019-08-28] MEDS ORDERED: Remifentanil* 2 MG VIAL ONE (07:09)
[2019-08-28] MEDS ORDERED: Propofol* 500 MG/50 ML BTL ONE ×3 (07:12→11:30)
[2019-08-28] MEDS ORDERED: KETAMINE HCL* 50 MG/ML 10 ML VIAL ONE (07:21)
[2019-08-28] MEDS ORDERED: EPHEDrine (Pressors)* 50 MG/ML VIAL ONE (09:04)
[2019-08-28] MEDS ORDERED: Phenylephrine 40 MCG/ML SYRINGE ONE (10:46)
[2019-08-28] MEDS ORDERED: HYDROmorphone INJ1* 1 MG/ML SYRINGE ONE ×2 (11:45→14:39)
[2019-08-28] MEDS ORDERED: Acetaminophen IV 1GM/100ML * 100 ML ONE (13:07)
[2019-08-28] MEDS ORDERED: Ondansetron INJ* 2 MG/ML VIAL ONE (13:38)
[2019-08-28] MEDS ORDERED: Ondansetron INJ* 2 MG/ML VIAL IV PRN (14:22)
[2019-08-28] MEDS ORDERED: oxyCODONE TAB* 5 MG TAB PO PRN (14:22)
[2019-08-28] MEDS ORDERED: diPHENhydraMINE IV* 50 MG/ML 1 ml VIAL (BENADRYL) IV PRN (14:22)
[2019-08-28] MEDS ORDERED: PROCHLORPERAZINE INJ 5 MG/ML 2 ML VIAL IV PRN (14:22)
[2019-08-28] MEDS ORDERED: Naloxone* 0.4 MG/ML 1 ML VIAL IV PRN (14:22)
[2019-08-28] MEDS: HYDROmorphone INJ1* 1 MG/ML SYRINGE IV PRN ×5 (14:41→16:03)
[2019-08-28] MEDS ORDERED: Acetaminophen TAB* 325 MG PO PRN (14:50)
[2019-08-28] MEDS: HYDROcodone/ACETAMIN 5-325 MG* 1 TAB PO PRN ×2 (17:39→20:22)
[2019-08-28] MEDS ORDERED: Polyethylene Glycol 3350* 17 GM PACKET PO PRN (17:44)
[2019-08-28] MEDS: Ascorbic Acid TAB* 500 MG PO SCH (20:23)
[2019-08-28] MEDS: Cholecalciferol TAB* 1000 UNITS PO SCH (20:23)
[2019-08-28] MEDS: hydrALAZINE TAB* 10 MG PO SCH (20:23)
[2019-08-28] MEDS: ZINC SULFATE PO SCH (20:26)
[2019-08-28] MEDS: CALCIUM CARBONATE PO SCH (20:26)
[2019-08-28] MEDS: MAGNESIUM OXIDE PO SCH (20:26)
--- NOTE | 2019-08-28 20:52 | CONS ---
CONSULTATION REPORT: DATE OF CONSULT: 08/28/19 PROVIDER: MIKE Zamudio REQUESTING PROVIDER: Dr. Dennis. REASON FOR CONSULT: Co-management of chronic medical conditions. HISTORY OF PRESENT ILLNESS/HOSPITAL COURSE: Funmilayo Gray is an 83-year-old white female with past medical history significant for hypertension, left-sided radiculopathy, and GERD, who presented for elective L3-L4 PEEK interbody cage with bone graft with Dr. Dennis today. The patient has chronic back pain and left-sided radiculopathy from the back pain and has had previous lumbar surgery with Dr. Dennis last year at L4-L5 level. The patient was evaluated on the medical floor after surgery. She tells me that her pain is 10/ 10 level and she is unclear if last time she has pain medication and the nurse is arriving into the room at the end of the evaluation and the patient tells me she has no chest pain, abdominal pain, nausea, vomiting, fever, chills, dizziness, lightheadedness, difficulty breathing. The nurse, Cammy, tells me that the patient was minimally hypoxic with exertion during transfer earlier , so this was shortly after receiving anesthesia and this will be reevaluated with next vitals check and the patient is currently on nasal cannula. PAST MEDICAL HISTORY: 1. Hypertension. 2. Left lower extremity radiculopathy. 3. GERD. PAST SURGICAL HISTORY: 1. Hysterectomy. 2. Cholecystectomy. 3. Recent clip placement for breast imaging, but no further biopsy or other breast surgery performed. HOME MEDICATIONS: 1. Vitamin E capsule 400 units p.o. b.i.d. 2. Tylenol 1000 mg p.o. q.6 hours p.r.n. pain. 3. Losartan 100 mg p.o. daily. 4. Loratadine 10 mg p.o. daily. 5. Acidophilus probiotic 1 tab p.o. daily. 6. Ibuprofen 300 mg p.o. q.4 hours p.r.n. pain. 7. Hydralazine 10 mg p.o. t.i.d. 8. Diclofenac 75 mg p.o. daily. 9. Cranberry tab 400 mg p.o. b.i.d. 10. Vitamin D3 1000 units p.o. b.i.d. 11. Calcium, magnesium, zinc tablet 2 tabs p.o. b.i.d. 12. Aspirin 81 mg p.o. daily. 13. Vitamin C 500 mg p.o. b.i.d. ALLERGIES: Reaction of GI upset to CIPROFLOXACIN. FAMILY HISTORY: Father at age 85 or 86 due to [place]. Mother due to lung cancer. 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. The patient lives alone. She denies alcohol use, drug use, and tobacco use. She has never been a smoker. PHYSICAL EXAM: Vital Signs: Temperature 97.4 degrees Fahrenheit, pulse 75, respiration rate 16, oxygen saturation 97% on 2 L, blood pressure 128/63. General: Elderly white female lying in a hospital bed, appearing comfortable, in no acute distress. Eyes: PERRL. Sclerae anicteric. ENT: Mucous membranes moist. Lungs: Clear to auscultation throughout. Cardio: Regular rate and rhythm with grade 2 systolic murmur appreciated. Abdomen: Soft, nontender, nondistended. Extremities: No clubbing, cyanosis, or edema. Neuro: The patient is alert and oriented x3. Able to move all extremities. Sensation to light touch grossly intact throughout. Skin: Warm, dry, and intact. DIAGNOSTIC STUDIES/LAB DATA: Fluoroscopy during spinal fusion for control films on 08/28/19. No recent labs reported at this time. ASSESSMENT AND PLAN: Funmilayo Gray is an 83-year-old white female with past medical history significant for hypertension, left lower extremity radiculopathy , and gastroesophageal reflux disease, who presents to the hospital today for L3 -L4 PEEK interbody cage with Dr. Dennis. Hospital Medicine has been consulted for co-management of chronic medical conditions. 1. Hypertension. Continue the patient's home hydralazine and losartan with hold parameters if her blood pressure is less than 120. 2. Gastroesophageal reflux disease. It does not appear that the patient is not on any medications . 3. Status post lumbar surgery. Management per Dr. Dennis. Continue bowel regimen. The patient is bed rest per Dr. Dennis' orders with neurological checks. 4. DVT prophylaxis. JAGDEEP Stockings and SCDs per Dr. Dennis in the setting of recent surgery. Thank you for allowing us to participate in the care of this patient. We will follow during this hospitalization. MIKE ZAMUDIO [id number]/CPS #: [id number] CHELY
[2019-08-28] MEDS ORDERED: hydrALAZINE TAB* 10 MG PO SCH (21:00)
[2019-08-29] MEDS: HYDROcodone/ACETAMIN 5-325 MG* 1 TAB PO PRN ×6 (00:08→18:12)
--- NOTE | 2019-08-29 00:45 | OP ---
DATE OF OPERATION: 08/28/19 - ROOM #331 DATE OF : 39. SURGEON: Pablo Dennis MD ACQUISITION ASSOCIATE: RAFAEL Lozano. The case was done with the assistance of RAFAEL because of the complexity of the case. ANESTHESIA: General. PRE-OP DIAGNOSES: Degenerative disk disease, scoliosis, herniated nucleus pulposus, adjacent level disease, adult deformity. POST-OP DIAGNOSES: Degenerative disk disease, scoliosis, herniated nucleus pulposus, adjacent level disease, adult deformity. OPERATIVE PROCEDURE: The patient underwent left L3-L4 minimally invasive TLIF with PEEK expandable interbody cage with iliac crest bone graft through a separate incision, DBX, placement of pedicle screws at bilateral L3, revision of previous instrumentation L4 and L5, repair of incidental durotomy, intraoperative navigation, and intraoperative electrophysiological monitoring. ESTIMATED BLOOD LOSS: 50 cc. COMPLICATIONS: None. SUMMARY: The patient is a very pleasant 83-year-old female, who has a history of previous L4-L5 minimally invasive TLIF. The patient did extremely well until recently when started experiencing excruciating back pain radiating to the left lower extremity. The patient was found to have asymmetric disk prolapse at L3-L4 with left disk herniation. After failing conservative treatment modalities, she was offered the option of the extension of the arthrodesis to L3 with L3-L4 TLIF. After explaining the expectations, limitations, and possible complications of the procedure to the patient and her daughter; with complications including but not limited to bleeding, infection, risk of injury to adjacent structures, paralysis, , need for additional procedure, anesthesia risks, stroke, blindness, cancer, instability, hardware failure, adjacent level disease with arthrosis, spinal fluid leak, loss of bladder or bowel control, injury to the intraabdominal contents including bowel , bladder, ureter or vessels, need for tracheostomy or gastrostomy, need for additional procedures, proximal or distal junctional kyphosis, anesthesia risks , the patient was agreeable to proceed with surgery and informed consent was obtained. The patient understood that this might be part of a series of operations due to her extensive adult deformity. The patient understood that she may need to have additional procedure, her condition may not improve, and finally get worse of the surgery, and that she may get to have additional procedures in the future. She also understood that the operative plan may be modified according to intraoperative findings and conditions, and the case may be abandoned or done in more than 1 more stages. The patient understood that she may require prolonged ICU stay, prolonged rehabilitation, and prolonged hospitalization. DESCRIPTION OF PROCEDURE: The patient was brought to the operating room and was placed under general anesthesia by the anesthesia team. She was carefully positioned prone on the Varghese table and all bony prominences were meticulously padded. Her skin was prepped and draped in the standard fashion. After appropriate surgical pause and the patient identification, the 2 previous incisions were marked from the skin, also another incision was marked on the area of the right PSIS. After infiltrating the skin with local anesthetic, a # 10 surgical blade was used to incise the skin over the iliac crest. The incision was carried down with Bovie cautery. With the assistance of [employer] needle, the Corex trocar was inserted and iliac crest bone graft was harvested for use in the arthrodesis part of the procedure. Through the same incision, the pin for the navigation star was also secured and intraoperative O-arm imaging was obtained. The patient's data was transferred to the navigation platform. With the assistance of stereotactic navigation, the trajectory of the L3 pedicle screws as well as the previous L4 and L5 pedicle screws, which were placed in the previous operation, were marked on the skin, and the previous surgical wounds were gently incised with a #10 surgical blade after infiltrating the skin with local anesthetic. The incisions were extended cephalad for approximately 1 more centimeter to accommodate the placement for the L3 pedicle screws. Then, the incision was carried down to the dorsal fascia and with the assistance of intraoperative navigation, the dorsal facia was divided starting on the right side, and a mini Ag approach was then performed. The previous pedicle screws were identified and the screw head caps were gently removed as well as the previously placed millie. With the assistance of intraoperative navigation, the pedicle of L3 on the right was cannulated with a use of high-speed drill and awl-tip tap, and a Medtronic Voyager ATS screw was then placed after appropriate sizing of the trajectory of the pedicle screw. The procedure was then repeated on the other side and after placement of the left L3 pedicle screw, then through the same fascial incision, the METRx tubular retractor was inserted over a series of dilators with the assistance of intraoperative monitoring. This was docked towards the left L3-L4 facet and then the intraoperative microscope was brought into the field. The left lamina of L3-S1 and L3-L4 facet was readily identified, and high-speed drill and Kerrison punches were used to perform a laminectomy at that level with medial facetectomy. The bone from the laminectomy and facetectomy were saved for the arthrodesis part of the procedure. The ligamentum flavum was then gently elevated and thecal sac and the nerve root was easily identified and after gentle medial retraction, a large disk herniation, as expected from the preoperative MRI, was identified. The discectomy was performed at the level after incising the annulus fibrosus with #15 surgical blade, pituitary rongeurs were used for the discectomy. Then preparation for the disk space was performed with a series of dilators under stereotactic navigation. After preparation of the disk space was completed with a use of pituitary rongeurs, Kerrison punches, scrapers, and curettes, a mixture of locally harvested bone graft, iliac crest bone graft, and DBX was inserted into the disk space, and a [employer] Elevate PEEK expandable interbody cage was prepared and filled with the same graft mixture. This was gently inserted. A small incidental durotomy was identified and this was easily repaired primarily with the 4-0 Nurolon sutures. At the end of the durotomy repair, Valsalva maneuver did not reveal any signs of CSF leak. The durotomy defect was reinforced with DuraGen and Tisseel in 2 layers, and after confirmation of meticulous hemostasis, meticulous inspection and copious irrigation, the METRx tubular retractor assistant loan processor was recently removed. Of note, prior to the of the durotomy site, the thecal sac and the nerve root was found to be free of any pressure phenomenon. Then, attention was brought to insert 2 cobalt chrome rods through the same fascia opening. These were secured in place with screw head caps. After in order to help maintain the patient's lumbar lordosis. After the screw head caps were finally tightened, the L3 pedicle screw extenders were removed. After copious irrigation and confirmation of meticulous hemostasis and meticulous inspection, the wound was closed by layers on the left side. The dorsal fascia wound was approximated with 0 interrupted Vicryl sutures in a watertight fashion while extra layer of running 0 Vicryl suture was then applied. After closure of the dorsal fascial defect, the subcutaneous tissue was approximated with inverted interrupted 2-0 Vicryl sutures and the skin was then approximated with 0 running Prolene sutures. After removing the open navigation star pin, the iliac crest wound was then closed by layers with inverted interrupted 2-0 Vicryl sutures for the subcutaneous tissue while the skin was approximated with interrupted 0 Prolene sutures. The wounds were then covered with sterile dressings. At the end of the procedure, all counts were reported to be correct. The patient remained hemodynamically stable throughout the case and intraoperative electrophysiological monitoring remained stable throughout the case. The patient was then turned supine, was extubated, and was transferred to Recovery in excellent condition. The case was done with the assistance of RAFAEL because of the complexity of the case. [id number]/[facility] #: [id number] CHE[place]
[2019-08-29 06:51] LABS: ABS Lymphocytes 0.8 10^3/ul (1.0-4.8); ABS Monocytes 0.7 10^3/ul (0-0.8); Eosinophil % 0.1 %; Hematocrit 28 % (35-47); Hemoglobin 9.5 g/dL (12.0-16.0); Lymphocyte % 11.3 %; Mean Corpuscular HGB Conc 35 g/dL (31-36); Mean Corpuscular Hemoglobin 33 pg (27-31); Mean Corpuscular Volume 95 fL (80-97); Mean Platelet Volume 7.9 fL (7.4-10.4); Platelet Count 220 10^3/uL (150-450); Red Cell Distribution Width 13 % (10-15); White Blood Count 7.5 10^3/uL (3.5-10.8)
[2019-08-29 07:09] LABS: BUN/Creatinine Ratio 20.6 (8-20); Calcium 8.3 mg/dL (8.6-10.3); EGFR African American 62.9 (>60); Potassium 4.2 mmol/L (3.5-5.0)
[2019-08-29] MEDS: Aspirin EC TAB* 81 MG TAB.EC PO SCH (08:44)
[2019-08-29] MEDS: Lactobacillus Acidophilus* 1 TAB PO SCH (08:44)
[2019-08-29] MEDS: hydrALAZINE TAB* 10 MG PO SCH ×3 (08:44→21:12)
[2019-08-29] MEDS: Ascorbic Acid TAB* 500 MG PO SCH ×2 (08:44→21:12)
[2019-08-29] MEDS: Cetirizine* 10 MG TAB PO SCH (08:44)
[2019-08-29] MEDS: Cholecalciferol TAB* 1000 UNITS PO SCH ×2 (08:44→21:12)
[2019-08-29] MEDS: CALCIUM CARBONATE PO SCH ×2 (08:45→21:12)
[2019-08-29] MEDS: ZINC SULFATE PO SCH ×2 (08:45→21:12)
[2019-08-29] MEDS: Losartan TAB* 25 MG PO SCH (08:45)
[2019-08-29] MEDS: MAGNESIUM OXIDE PO SCH ×2 (08:45→21:12)
--- NOTE | 2019-08-29 09:32 | PN ---
Subjective Date of Service: 08/29/19 Interval History: Ms. Gray is feeling a little better today. Pain is overall improved from yesterday, but still present, 01/08 currently. Pain is focused in lower back and does not radiate. Current pain medications are helping. She was able to eat some crackers last night and will attempt to eat some breakfast this morning. Denies CP, SOB, N/V. No concerns from nursing. Family History: Unchanged from Admission Social History: Unchanged from Admission Past Medical History: Unchanged from Admission Objective Active Medications: Acetaminophen (Tylenol Tab*) 650 mg PO Q4H PRN MILD PAIN or TEMP > 100.4 Hydrocodone Bitart/Acetaminophen ([place] 5-325 Tab*) 1 tab PO Q4H PRN PAIN - MODERATE Hydrocodone Bitart/Acetaminophen ([place] 5-325 Tab*) 2 tab PO Q4H PRN PAIN - SEVERE Ascorbic Acid (Vitamin C Tab*) 500 mg PO BID SHANDRA Aspirin (Aspirin Ec Tab*) 81 mg PO QAM SHANDRA Cetirizine HCl (Zyrtec*) 10 mg PO QAM SHANDRA Cholecalciferol (Vitamin D Tab*) 1,000 units PO BID SHANDRA Hydralazine HCl (Apresoline Tab*) 10 mg PO TID SHANDRA Lactated Ringer's (Lactated Ringers 1000 Ml Bag*) 1,000 mls @ 50 mls/hr IV .per rate SHANDRA Lactobacillus Rhamnosus (Lactobacillus Acidophilus*) 1 tab PO QAM SHANDRA Losartan Potassium (Cozaar Tab*) 100 mg PO QAM SHANDRA Magnesium Hydroxide (Milk Of Magnesia Liq*) 30 ml PO DAILY PRN CONSTIPATION Nft: Calcium Carb/Mag Ox/Zinc Sulf [ Calcium-Magnesium- Zinc Tablet] 2 Tab) 2 tab PO BID SHANDRA Ondansetron HCl (Zofran Inj*) 4 mg IV Q6H PRN NAUSEA/VOMITING Polyethylene Glycol/Electrolytes (Miralax*) 17 gm PO DAILY PRN CONSTIPATION Vital Signs - 8 hr 08/29/19 08/29/19 08/29/19 04:01 04:08 06:35 Temperature 98 F Pulse Rate 77 Respiratory 18 18 18 Rate Blood Pressure 141/50 (mmHg) O2 Sat by Pulse 100 Oximetry 08/29/19 08/29/19 07:31 08:14 Temperature 98 F Pulse Rate 76 Respiratory 16 18 Rate Blood Pressure 133/43 (mmHg) O2 Sat by Pulse 98 Oximetry Oxygen Devices in Use Now: None Appearance: Elderly female lying in bed in NAD Ears/Nose/Mouth/Throat: Mucous Membranes Moist Neck: NL Appearance and Movements; NL JVP, Trachea Midline Respiratory: Symmetrical Chest Expansion and Respiratory Effort, Clear to Auscultation Cardiovascular: NL Sounds; No Murmurs; No JVD, RRR Abdominal: NL Sounds; No Tenderness; No Distention Extremities: No Edema Neurological: Alert and Oriented x 3, NL Sensation Lines/Tubes/Other Access: Clean, Dry and Intact Peripheral IV Nutrition: Taking PO's Result Diagrams: 08/29/19 06:11 08/29/19 06:11 Assess/Plan/Problems-Billing Assessment: Ms. Gray is an 83 yo F with PMH of HTN and GERD; who [place] [facility] [place], now postop and recovering well. - Patient Problems (1) Status post lumbar surgery Code(s): Z98.890 - OTHER SPECIFIED POSTPROCEDURAL STATES Comment: - POD 1 L3-4 PEEK interbody cage with bone graft with Dr. Dennis - Management per Neurosurgery - Bedrest for at least 48 hours - Continue [place], bowel regimen (2) Hypertension Code(s): I10 - ESSENTIAL (PRIMARY) HYPERTENSION Comment: - Normotensive - Continue losartan, hydralazine (3) DVT prophylaxis Code(s): Z29.9 - ENCOUNTER FOR PROPHYLACTIC MEASURES, UNSPECIFIED Comment: - SCDs (4) Full code status Code(s): Z78.9 - OTHER SPECIFIED HEALTH STATUS Comment: Status and Disposition: Inpatient. Anticipate d/c home when cleared by Neurosurgery Attending: Romelia Ramírez
[2019-08-29] MEDS: Magnesium Hydroxide LIQ* 30 ML UDC PO PRN (17:09)
[2019-08-29] MEDS: Ondansetron INJ* 2 MG/ML VIAL IV PRN (18:09)
--- NOTE | 2019-08-29 20:51 | PN ---
Progress Note - Progress Note Date of Service: 08/29/19 SOAP: Subjective: [] No events ON. On bed rest. Tolerates PO well. No AGUILAR. Johnston. Flatus +. Incision pain improving. Preop LLE pain resolved.. Objective: []VSS, Afebrile. Wounds s,c,d AAOx3 DEMETRIA, CN II-XII grossly intact Motor 5/5 all extremities Sensory grossly intact to light touch Assessment: []83 yof POD#1 Left L3-4 MIS TLIF with L4-5 instrumentation revision Plan: []Monitor VS, Neurochecks Continue Bed rest for now. PT eval. DC planning IS Consider Bowel regimen in am. Appreciate IM care. Alfonso Dennis MD
[2019-08-30] MEDS: HYDROcodone/ACETAMIN 5-325 MG* 1 TAB PO PRN ×4 (01:00→18:56)
[2019-08-30 06:12] LABS: ABS Lymphocytes 0.8 10^3/ul (1.0-4.8); ABS Monocytes 0.8 10^3/ul (0-0.8); ABS Neutrophils 6.3 10^3/ul (1.5-7.7); Eosinophil % 0.6 %; Hematocrit 28 % (35-47); Hemoglobin 9.6 g/dL (12.0-16.0); Lymphocyte % 9.9 %; Mean Corpuscular HGB Conc 35 g/dL (31-36); Mean Corpuscular Hemoglobin 32 pg (27-31); Mean Corpuscular Volume 93 fL (80-97); Mean Platelet Volume 7.6 fL (7.4-10.4); Platelet Count 225 10^3/uL (150-450); Red Blood Count 2.96 10^6 /uL (3.70-4.87); Red Cell Distribution Width 13 % (10-15)
[2019-08-30 06:21] LABS: BUN/Creatinine Ratio 15.1 (8-20); Calcium 8.2 mg/dL (8.6-10.3); EGFR Non-African American 57.9 (>60); Potassium 4.1 mmol/L (3.5-5.0)
[2019-08-30] MEDS: Magnesium Hydroxide LIQ* 30 ML UDC PO PRN (08:15)
[2019-08-30] MEDS: Aspirin EC TAB* 81 MG TAB.EC PO SCH (08:16)
[2019-08-30] MEDS: hydrALAZINE TAB* 10 MG PO SCH ×3 (08:16→21:15)
[2019-08-30] MEDS: Cetirizine* 10 MG TAB PO SCH (08:16)
[2019-08-30] MEDS: Lactobacillus Acidophilus* 1 TAB PO SCH (08:16)
[2019-08-30] MEDS: Losartan TAB* 25 MG PO SCH (08:16)
[2019-08-30] MEDS: Ascorbic Acid TAB* 500 MG PO SCH ×2 (08:16→21:16)
[2019-08-30] MEDS: Cholecalciferol TAB* 1000 UNITS PO SCH ×2 (08:16→21:15)
[2019-08-30] MEDS: MAGNESIUM OXIDE PO SCH ×2 (08:18→21:09)
[2019-08-30] MEDS: CALCIUM CARBONATE PO SCH ×2 (08:18→21:09)
[2019-08-30] MEDS: ZINC SULFATE PO SCH ×2 (08:18→21:09)
[2019-08-30] MEDS: Polyethylene Glycol 3350* 17 GM PACKET PO SCH ×2 (08:20→14:34)
--- NOTE | 2019-08-30 08:38 | PN ---
Subjective Date of Service: 08/30/19 Interval History: Ms. Gray is feeling well this morning. Pain is overall improved from yesterday. Pain medications are effective and she was able to sleep well overnight. She is currently in pain, but just received pain medication. Denies CP, SOB, N/V, neuro deficits. Good appetite. No concerns from nursing. Family History: Unchanged from Admission Social History: Unchanged from Admission Past Medical History: Unchanged from Admission Objective Active Medications: Acetaminophen (Tylenol Tab*) 650 mg PO Q4H PRN MILD PAIN or TEMP > 100.4 Hydrocodone Bitart/Acetaminophen ([place] 5-325 Tab*) 1 tab PO Q4H PRN PAIN - MODERATE Hydrocodone Bitart/Acetaminophen ([place] 5-325 Tab*) 2 tab PO Q4H PRN PAIN - SEVERE Ascorbic Acid (Vitamin C Tab*) 500 mg PO BID SHANDRA Aspirin (Aspirin Ec Tab*) 81 mg PO QAM SHANDRA Cetirizine HCl (Zyrtec*) 10 mg PO QAM SHANDRA Cholecalciferol (Vitamin D Tab*) 1,000 units PO BID SHANDRA Hydralazine HCl (Apresoline Tab*) 10 mg PO TID SHANDRA Lactobacillus Rhamnosus (Lactobacillus Acidophilus*) 1 tab PO QAM SHANDRA Losartan Potassium (Cozaar Tab*) 100 mg PO QAM SHANDRA Magnesium Hydroxide (Milk Of Magnesia Liq*) 30 ml PO DAILY PRN CONSTIPATION Nft: Calcium Carb/Mag Ox/Zinc Sulf [ Calcium-Magnesium- Zinc Tablet] 2 Tab) 2 tab PO BID SHANDRA Ondansetron HCl (Zofran Inj*) 4 mg IV Q6H PRN NAUSEA/VOMITING Polyethylene Glycol/Electrolytes (Miralax*) 17 gm PO DAILY [facility] Vital Signs - 8 hr 08/30/19 08/30/19 08/30/19 01:00 03:12 07:56 Temperature 98.2 F Pulse Rate 86 Respiratory 16 17 18 Rate Blood Pressure 148/64 (mmHg) O2 Sat by Pulse 95 Oximetry 08/30/19 08/30/19 08:00 08:04 Temperature 98.6 F Pulse Rate 78 Respiratory 18 18 Rate Blood Pressure 131/64 (mmHg) O2 Sat by Pulse 97 Oximetry Oxygen Devices in Use Now: None Appearance: Elderly female lying in bed in NAD Ears/Nose/Mouth/Throat: Mucous Membranes Moist Neck: NL Appearance and Movements; NL JVP, Trachea Midline Respiratory: Symmetrical Chest Expansion and Respiratory Effort, Clear to Auscultation Cardiovascular: NL Sounds; No Murmurs; No JVD, RRR Abdominal: NL Sounds; No Tenderness; No Distention Extremities: No Edema Neurological: Alert and Oriented x 3, NL Sensation Lines/Tubes/Other Access: Clean, Dry and Intact Peripheral IV Nutrition: Taking PO's Result Diagrams: 08/30/19 05:45 08/30/19 05:45 Assess/Plan/Problems-Billing Assessment: Ms. Gray is an 83 yo F with PMH of HTN and GERD; who presented to [facility] [place] for an elective lumbar surgery, now postop and recovering well. - Patient Problems (1) Status post lumbar surgery Code(s): Z98.890 - OTHER SPECIFIED POSTPROCEDURAL STATES Comment: - POD 1 L3-4 PEEK interbody cage with bone graft - Management per Neurosurgery - Bedrest until cleared by Dr. Paz - Continue [place], bowel regimen (2) Hypertension Code(s): I10 - ESSENTIAL (PRIMARY) HYPERTENSION Comment: - Normotensive - Continue losartan, hydralazine (3) DVT prophylaxis Code(s): Z29.9 - ENCOUNTER FOR PROPHYLACTIC MEASURES, UNSPECIFIED Comment: - SCDs (4) Full code status Code(s): Z78.9 - OTHER SPECIFIED HEALTH STATUS Comment: Status and Disposition: Inpatient. Anticipate d/c home when cleared by Neurosurgery. Attending: Romelia Ramírez
[2019-08-30] MEDS: Cyclobenzaprine TAB* 10 MG PO PRN ×2 (12:16→21:15)
--- NOTE | 2019-08-30 12:53 | PN ---
Progress Note - Progress Note Date of Service: 08/30/19 SOAP: Subjective: []No events ON. On bed rest. Tolerates PO well. No AGUILAR. Johnston. Pain improving. Objective: []VSS, Afebrile. Wounds s,c,d. Dressing changed. AAOx3 DEMETRIA, CN II-XII grossly intact Motor 5/5 all extremities Sensory grossly intact to light touch Assessment: []83 yof POD#2 Left L3-4 MIS TLIF with L4-5 instrumentation revision Plan: []Monitor VS, Neurochecks Continue bed rest for now. PT eval. DC planning IS Continue Bowel regimen. May start SQ Heparin in am Appreciate IM care. Alfonso Dennis MD .
[2019-08-30] MEDS: Ondansetron INJ* 2 MG/ML VIAL IV PRN (17:14)
[2019-08-31] MEDS: HYDROcodone/ACETAMIN 5-325 MG* 1 TAB PO PRN ×5 (01:38→22:06)
[2019-08-31] MEDS: Magnesium Hydroxide LIQ* 30 ML UDC PO PRN (01:39)
[2019-08-31 05:47] LABS: ABS Eosinophils 0.2 10^3/ul (0-0.6); ABS Lymphocytes 1.2 10^3/ul (1.0-4.8); ABS Monocytes 0.6 10^3/ul (0-0.8); ABS Neutrophils 3.8 10^3/ul (1.5-7.7); Eosinophil % 2.7 %; Hematocrit 27 % (35-47); Hemoglobin 9.2 g/dL (12.0-16.0); Lymphocyte % 20.5 %; Mean Corpuscular HGB Conc 34 g/dL (31-36); Mean Corpuscular Hemoglobin 32 pg (27-31); Mean Corpuscular Volume 93 fL (80-97); Mean Platelet Volume 7.1 fL (7.4-10.4); Platelet Count 237 10^3/uL (150-450); Red Blood Count 2.87 10^6 /uL (3.70-4.87); Red Cell Distribution Width 13 % (10-15); White Blood Count 5.7 10^3/uL (3.5-10.8)
[2019-08-31 06:02] LABS: Calcium 8.3 mg/dL (8.6-10.3); Potassium 4.1 mmol/L (3.5-5.0)
[2019-08-31 06:08] LABS: BUN/Creatinine Ratio 14.9 (8-20); EGFR African American 75.6 (>60); EGFR Non-African American 62.5 (>60)
[2019-08-31] MEDS: Cyclobenzaprine TAB* 10 MG PO PRN ×2 (06:58→13:30)
[2019-08-31] MEDS: Polyethylene Glycol 3350* 17 GM PACKET PO SCH (07:42)
[2019-08-31] MEDS: Ascorbic Acid TAB* 500 MG PO SCH ×2 (07:42→22:06)
[2019-08-31] MEDS: Cetirizine* 10 MG TAB PO SCH (07:43)
[2019-08-31] MEDS: Lactobacillus Acidophilus* 1 TAB PO SCH (07:43)
[2019-08-31] MEDS: Losartan TAB* 25 MG PO SCH (07:43)
[2019-08-31] MEDS: Cholecalciferol TAB* 1000 UNITS PO SCH ×2 (07:44→22:06)
[2019-08-31] MEDS: hydrALAZINE TAB* 10 MG PO SCH ×3 (07:44→22:07)
[2019-08-31] MEDS: Aspirin EC TAB* 81 MG TAB.EC PO SCH (07:44)
[2019-08-31] MEDS: MAGNESIUM OXIDE PO SCH ×2 (07:45→22:08)
[2019-08-31] MEDS: CALCIUM CARBONATE PO SCH ×2 (07:45→22:08)
[2019-08-31] MEDS: ZINC SULFATE PO SCH ×2 (07:45→22:08)
--- NOTE | 2019-08-31 10:33 | PN ---
Subjective Date of Service: 08/31/19 Interval History: Ms. Gray is feeling poor this morning. She is having significant pain this morning and just received pain medications on my exam. She has not been able to have a BM because she is not able to use the bedpan. Denies CP, SOB, N/V. No concerns from nursing. Family History: Unchanged from Admission Social History: Unchanged from Admission Past Medical History: Unchanged from Admission Objective Active Medications: Acetaminophen (Tylenol Tab*) 650 mg PO Q4H PRN MILD PAIN or TEMP > 100.4 Hydrocodone Bitart/Acetaminophen ([place] 5-325 Tab*) 1 tab PO Q4H PRN PAIN - MODERATE Hydrocodone Bitart/Acetaminophen ([place] 5-325 Tab*) 2 tab PO Q4H PRN PAIN - SEVERE Ascorbic Acid (Vitamin C Tab*) 500 mg PO BID SHANDRA Aspirin (Aspirin Ec Tab*) 81 mg PO QAM SHANDRA Cetirizine HCl (Zyrtec*) 10 mg PO QAM SHANDRA Cholecalciferol (Vitamin D Tab*) 1,000 units PO BID SHANDRA Cyclobenzaprine HCl (Flexeril Tab*) 10 mg PO Q8H PRN SPASM Heparin Sodium (Porcine) (Heparin Vial(*)) 5,000 units SUBCUT Q8HR SHANDRA Hydralazine HCl (Apresoline Tab*) 10 mg PO TID SHANDRA Lactobacillus Rhamnosus (Lactobacillus Acidophilus*) 1 tab PO QAM SHANDRA Losartan Potassium (Cozaar Tab*) 100 mg PO QAM SHANDRA Magnesium Hydroxide (Milk Of Magnesia Liq*) 30 ml PO DAILY PRN CONSTIPATION Nft: Calcium Carb/Mag Ox/Zinc Sulf [ Calcium-Magnesium- Zinc Tablet] 2 Tab) 2 tab PO BID SHANDRA Ondansetron HCl (Zofran Inj*) 4 mg IV Q6H PRN NAUSEA/VOMITING Polyethylene Glycol/Electrolytes (Miralax*) 17 gm PO DAILY [facility] Vital Signs - 8 hr 08/31/19 08/31/19 08/31/19 04:00 06:58 07:21 Temperature 98 F 98.5 F Pulse Rate 78 82 Respiratory 16 20 14 Rate Blood Pressure 135/53 128/60 (mmHg) O2 Sat by Pulse 95 96 Oximetry 08/31/19 08/31/19 07:40 08:00 Temperature Pulse Rate Respiratory 18 18 Rate Blood Pressure (mmHg) O2 Sat by Pulse 96 Oximetry Oxygen Devices in Use Now: None Appearance: Elderly female lying in bed in NAD Ears/Nose/Mouth/Throat: Mucous Membranes Moist Neck: NL Appearance and Movements; NL JVP, Trachea Midline Respiratory: Symmetrical Chest Expansion and Respiratory Effort, Clear to Auscultation Cardiovascular: NL Sounds; No Murmurs; No JVD, RRR Abdominal: NL Sounds; No Tenderness; No Distention Extremities: No Edema Neurological: Alert and Oriented x 3, NL Sensation Lines/Tubes/Other Access: Clean, Dry and Intact Peripheral IV Nutrition: Taking PO's Result Diagrams: 08/31/19 05:33 08/31/19 05:33 Assess/Plan/Problems-Billing Assessment: Ms. Gray is an 83 yo F with PMH of HTN and GERD; who presented to [facility] [place] for an elective lumbar surgery, now postop and recovering well. - Patient Problems (1) Status post lumbar surgery Code(s): Z98.890 - OTHER SPECIFIED POSTPROCEDURAL STATES Comment: - POD 3 L3-4 PEEK interbody cage with bone graft - Management per Neurosurgery - Bedrest until cleared by Dr. Paz - Continue [place], bowel regimen (2) Acute blood loss anemia Code(s): D62 - ACUTE POSTHEMORRHAGIC ANEMIA Comment: - H&H stable - Secondary to surgery (3) Hypertension Code(s): I10 - ESSENTIAL (PRIMARY) HYPERTENSION Comment: - Normotensive - Continue losartan, hydralazine (4) DVT prophylaxis Code(s): Z29.9 - ENCOUNTER FOR PROPHYLACTIC MEASURES, UNSPECIFIED Comment: - Heparin per Neurosurgery (5) Full code status Code(s): Z78.9 - OTHER SPECIFIED HEALTH STATUS Comment: Status and Disposition: Inpatient. Anticipate d/c home when cleared by Neurosurgery. Attending: Romelia Ramírez
[2019-08-31] MEDS: Heparin VIAL(*) 5000 UNITS/ML VIAL (FIVE THOUSAND) SUBCUT SCH ×2 (13:32→22:08)
--- NOTE | 2019-08-31 18:16 | PN ---
Progress Note - Progress Note Date of Service: 08/31/19 SOAP: Subjective: [] No events ON. Ambulated to bathroom. No AGUILAR. Tolerates PO well. No AGUILAR. Johnston. BM + Objective: []VSS, Afebrile. Wounds s,c,d. AAOx3 DEMETRIA, CN II-XII grossly intact Motor 5/5 all extremities Sensory grossly intact to light touch Assessment: []83 yof POD#3 Left L3-4 MIS TLIF with L4-5 instrumentation revision Plan: [] Monitor VS, Neurochecks OOB with assistance. PT eval in am. DC planning IS Appreciate IM care. Alfonso Dennis MD
[2019-09-01] MEDS: Cyclobenzaprine TAB* 10 MG PO PRN ×2 (03:40→13:04)
[2019-09-01] MEDS: HYDROcodone/ACETAMIN 5-325 MG* 1 TAB PO PRN ×4 (06:13→20:08)
[2019-09-01] MEDS: Heparin VIAL(*) 5000 UNITS/ML VIAL (FIVE THOUSAND) SUBCUT SCH ×3 (06:15→22:40)
[2019-09-01] MEDS: Lactobacillus Acidophilus* 1 TAB PO SCH (08:21)
[2019-09-01] MEDS: Ascorbic Acid TAB* 500 MG PO SCH ×2 (08:21→20:08)
[2019-09-01] MEDS: Cholecalciferol TAB* 1000 UNITS PO SCH ×2 (08:23→20:08)
[2019-09-01] MEDS: Aspirin EC TAB* 81 MG TAB.EC PO SCH (08:23)
[2019-09-01] MEDS: Losartan TAB* 25 MG PO SCH (08:24)
[2019-09-01] MEDS: hydrALAZINE TAB* 10 MG PO SCH ×3 (08:24→22:40)
[2019-09-01] MEDS: Cetirizine* 10 MG TAB PO SCH (08:24)
[2019-09-01] MEDS: Polyethylene Glycol 3350* 17 GM PACKET PO SCH (08:25)
[2019-09-01] MEDS: ZINC SULFATE PO SCH ×2 (08:26→20:26)
[2019-09-01] MEDS: MAGNESIUM OXIDE PO SCH ×2 (08:26→20:26)
[2019-09-01] MEDS: CALCIUM CARBONATE PO SCH ×2 (08:26→20:26)
--- NOTE | 2019-09-01 09:54 | PN ---
Subjective Date of Service: 09/01/19 Interval History: Ms. Gray is feeling better today. She was able to get OOB yesterday and ambulate a bit with PT and to the bathroom. Ambulation is painful, but she thinks she has been doing okay with a walker. She feels she needs LUCIANO. Denies CP , SOB, neuro deficits. No concerns from nursing. Family History: Unchanged from Admission Social History: Unchanged from Admission Past Medical History: Unchanged from Admission Objective Active Medications: Acetaminophen (Tylenol Tab*) 650 mg PO Q4H PRN MILD PAIN or TEMP > 100.4 Hydrocodone Bitart/Acetaminophen ([place] 5-325 Tab*) 1 tab PO Q4H PRN PAIN - MODERATE Hydrocodone Bitart/Acetaminophen ([place] 5-325 Tab*) 2 tab PO Q4H PRN PAIN - SEVERE Ascorbic Acid (Vitamin C Tab*) 500 mg PO BID [facility] Aspirin (Aspirin Ec Tab*) 81 mg PO QAM [facility] Cetirizine HCl (Zyrtec*) 10 mg PO QAM [facility] Cholecalciferol (Vitamin D Tab*) 1,000 units PO BID [facility] Cyclobenzaprine HCl (Flexeril Tab*) 10 mg PO Q8H PRN SPASM Heparin Sodium (Porcine) (Heparin Vial(*)) 5,000 units SUBCUT Q8HR [facility] Hydralazine HCl (Apresoline Tab*) 10 mg PO TID [facility]AN[facility] Lactobacillus Rhamnosus (Lactobacillus Acidophilus*) 1 tab PO QAM HS[facility] Losartan Potassium (Cozaar Tab*) 100 mg PO QAM [facility] Magnesium Hydroxide (Milk Of Magnesia Liq*) 30 ml PO DAILY PRN CONSTIPATION Nft: Calcium Carb/Mag Ox/Zinc Sulf [ Calcium-Magnesium- Zinc Tablet] 2 Tab) 2 tab PO BID [facility] Ondansetron HCl (Zofran Inj*) 4 mg IV Q6H PRN NAUSEA/VOMITING Polyethylene Glycol/Electrolytes (Miralax*) 17 gm PO DAILY [facility] Vital Signs - 8 hr 09/01/19 09/01/19 09/01/19 03:40 03:49 06:13 Temperature 97.3 F Pulse Rate 73 Respiratory 20 20 18 Rate Blood Pressure 142/52 (mmHg) O2 Sat by Pulse 100 Oximetry 09/01/19 09/01/19 09/01/19 06:17 07:15 08:22 Temperature 98.7 F Pulse Rate 73 Respiratory 18 18 18 Rate Blood Pressure 132/67 (mmHg) O2 Sat by Pulse 97 Oximetry Oxygen Devices in Use Now: None Appearance: Elderly female lying in bed in NAD Ears/Nose/Mouth/Throat: Mucous Membranes Moist Neck: NL Appearance and Movements; NL JVP, Trachea Midline Respiratory: Symmetrical Chest Expansion and Respiratory Effort, Clear to Auscultation Cardiovascular: NL Sounds; No Murmurs; No JVD, RRR Abdominal: NL Sounds; No Tenderness; No Distention Extremities: No Edema Neurological: Alert and Oriented x 3, NL Sensation Lines/Tubes/Other Access: Clean, Dry and Intact Peripheral IV Nutrition: Taking PO's Result Diagrams: 08/31/19 05:33 08/31/19 05:33 Assess/Plan/Problems-Billing Assessment: Ms. Gray is an 83 yo F with PMH of HTN and GERD; who presented to [facility] for an elective lumbar surgery, now postop and recovering well. - Patient Problems (1) Status post lumbar surgery Code(s): Z98.890 - OTHER SPECIFIED POSTPROCEDURAL STATES Comment: - POD 3 L3-4 TLIF - Management per Neurosurgery - Up with activity per Dr. Dennis - Continue [place], bowel regimen (2) Acute blood loss anemia Code(s): D62 - ACUTE POSTHEMORRHAGIC ANEMIA Comment: - H&H stable - Secondary to surgery (3) Hypertension Code(s): I10 - ESSENTIAL (PRIMARY) HYPERTENSION Comment: - Normotensive - Continue losartan, hydralazine (4) DVT prophylaxis Code(s): Z29.9 - ENCOUNTER FOR PROPHYLACTIC MEASURES, UNSPECIFIED Comment: - Heparin per Neurosurgery (5) Full code status Code(s): Z78.9 - OTHER SPECIFIED HEALTH STATUS Comment: Status and Disposition: Inpatient. Anticipate d/c to [facility]. Attending: Megan Vidal
--- NOTE | 2019-09-01 11:16 | PN ---
Progress Note - Progress Note Date of Service: 09/01/19 SOAP: Subjective: []No events ON. Ambulated to bathroom. No AGUILAR. Tolerates PO well. Voids. Preop back and LLE pain resolved. Objective: [] VSS, Afebrile. Wounds s,c,d. AAOx3 DEMETRIA, CN II-XII grossly intact Motor 5/5 all extremities Sensory grossly intact to light touch Assessment: []83 yof POD#4 Left L3-4 MIS TLIF with L4-5 instrumentation revision Plan: [] Monitor VS, Neurochecks OOB with assistance. Continue PT. DC planning IS L spine XR today Appreciate IM care. Alfonso Dennis MD
[2019-09-01] MEDS: Diazepam TAB(*) 5 MG PO PRN (16:42)
[2019-09-02] MEDS: HYDROcodone/ACETAMIN 5-325 MG* 1 TAB PO PRN ×4 (02:46→23:03)
[2019-09-02] MEDS: Diazepam TAB(*) 5 MG PO PRN ×3 (05:35→23:02)
[2019-09-02] MEDS: Heparin VIAL(*) 5000 UNITS/ML VIAL (FIVE THOUSAND) SUBCUT SCH ×3 (05:38→21:18)
--- NOTE | 2019-09-02 08:33 | PN ---
Subjective Date of Service: 09/02/19 Interval History: Ms. Gray is feeling better today. Just prior to my arrival she was up ambulating in the hallway with her nurse. She is doing well with a walker. Back pain still present, but tolerable. Pain medications are helpful. Denies CP or SOB. No concerns from nursing. Family History: Unchanged from Admission Social History: Unchanged from Admission Past Medical History: Unchanged from Admission Objective Active Medications: Acetaminophen (Tylenol Tab*) 650 mg PO Q4H PRN MILD PAIN or TEMP > 100.4 Hydrocodone Bitart/Acetaminophen ([place] 5-325 Tab*) 1 tab PO Q4H PRN PAIN - MODERATE Hydrocodone Bitart/Acetaminophen ([place] 5-325 Tab*) 2 tab PO Q4H PRN PAIN - SEVERE Ascorbic Acid (Vitamin C Tab*) 500 mg PO BID [facility] Aspirin (Aspirin Ec Tab*) 81 mg PO QAM SHANDRA Cetirizine HCl (Zyrtec*) 10 mg PO QAM SHANDRA Cholecalciferol (Vitamin D Tab*) 1,000 units PO BID [facility] Diazepam (Valium Tab(*)) 5 mg PO Q8H PRN MUSCLE SPASMS Heparin Sodium (Porcine) (Heparin Vial(*)) 5,000 units SUBCUT Q8HR [facility] Hydralazine HCl (Apresoline Tab*) 10 mg PO TID [facility] Lactobacillus Rhamnosus (Lactobacillus Acidophilus*) 1 tab PO QAM SHANDR[facility] Losartan Potassium (Cozaar Tab*) 100 mg PO QAM [facility] Magnesium Hydroxide (Milk Of Magnesia Liq*) 30 ml PO DAILY PRN CONSTIPATION Nft: Calcium Carb/Mag Ox/Zinc Sulf [ Calcium-Magnesium- Zinc Tablet] 2 Tab) 2 tab PO BID [facility] Ondansetron HCl (Zofran Inj*) 4 mg IV Q6H PRN NAUSEA/VOMITING Polyethylene Glycol/Electrolytes (Miralax*) 17 gm PO DAILY [facility] Vital Signs - 8 hr 09/02/19 09/02/19 09/02/19 00:54 02:46 03:27 Temperature 98.0 F 97.9 F Pulse Rate 74 74 Respiratory 16 18 16 Rate Blood Pressure 116/38 127/49 (mmHg) O2 Sat by Pulse 98 100 Oximetry 09/02/19 09/02/19 09/02/19 05:35 06:35 07:13 Temperature 98.6 F Pulse Rate 76 Respiratory 18 18 18 Rate Blood Pressure 124/54 (mmHg) O2 Sat by Pulse 100 Oximetry 09/02/19 09/02/19 08:00 08:23 Temperature Pulse Rate Respiratory 18 18 Rate Blood Pressure (mmHg) O2 Sat by Pulse 100 Oximetry Oxygen Devices in Use Now: None Appearance: Elderly female lying in bed in NAD Ears/Nose/Mouth/Throat: Mucous Membranes Moist Neck: NL Appearance and Movements; NL JVP, Trachea Midline Respiratory: Symmetrical Chest Expansion and Respiratory Effort, Clear to Auscultation Cardiovascular: NL Sounds; No Murmurs; No JVD, RRR Abdominal: NL Sounds; No Tenderness; No Distention Extremities: No Edema Neurological: Alert and Oriented x 3, NL Sensation Lines/Tubes/Other Access: Clean, Dry and Intact Peripheral IV Nutrition: Taking PO's Result Diagrams: 08/31/19 05:33 08/31/19 05:33 Assess/Plan/Problems-Billing Assessment: Ms. Gray is an 83 yo F with PMH of HTN and GERD; who presented to [facility] for an elective lumbar surgery, now postop and recovering well. - Patient Problems (1) Status post lumbar surgery Code(s): Z98.890 - OTHER SPECIFIED POSTPROCEDURAL STATES Comment: - POD 4 L3-4 TLIF - Management per Neurosurgery - Up with activity per Dr. Dennis - Continue [place], bowel regimen (2) Acute blood loss anemia Code(s): D62 - ACUTE POSTHEMORRHAGIC ANEMIA Comment: - H&H stable - Secondary to surgery (3) Hypertension Code(s): I10 - ESSENTIAL (PRIMARY) HYPERTENSION Comment: - Normotensive - Continue losartan, hydralazine (4) DVT prophylaxis Code(s): Z29.9 - ENCOUNTER FOR PROPHYLACTIC MEASURES, UNSPECIFIED Comment: - Heparin per Neurosurgery (5) Full code status Code(s): Z78.9 - OTHER SPECIFIED HEALTH STATUS Comment: Status and Disposition: Inpatient. Anticipate d/c to [facility]. Attending: Megan Vidal
[2019-09-02] MEDS: Polyethylene Glycol 3350* 17 GM PACKET PO SCH (09:46)
[2019-09-02] MEDS: Ascorbic Acid TAB* 500 MG PO SCH ×2 (09:48→21:18)
[2019-09-02] MEDS: hydrALAZINE TAB* 10 MG PO SCH ×3 (09:48→21:17)
[2019-09-02] MEDS: Cholecalciferol TAB* 1000 UNITS PO SCH ×2 (09:48→21:18)
[2019-09-02] MEDS: Cetirizine* 10 MG TAB PO SCH (09:48)
[2019-09-02] MEDS: Aspirin EC TAB* 81 MG TAB.EC PO SCH (09:48)
[2019-09-02] MEDS: Losartan TAB* 25 MG PO SCH (09:48)
[2019-09-02] MEDS: Lactobacillus Acidophilus* 1 TAB PO SCH (09:48)
[2019-09-02] MEDS: CALCIUM CARBONATE PO SCH (09:52)
[2019-09-02] MEDS: ZINC SULFATE PO SCH (09:52)
[2019-09-02] MEDS: MAGNESIUM OXIDE PO SCH (09:52)
--- NOTE | 2019-09-02 12:47 | PN ---
Progress Note - Progress Note Date of Service: 09/02/19 SOAP: Subjective: []No events ON. Ambulates. No AGUILAR. Tolerates PO well. Voids. Preop back and LLE pain resolved. Objective: []VSS, Afebrile. Wounds s,c,d. Dressing changed. AAOx3 DEMETRIA, CN II-XII grossly intact Motor 5/5 all extremities Sensory grossly intact to light touch Assessment: []83 yof POD#5 Left L3-4 MIS TLIF with L4-5 instrumentation revision Plan: [] Monitor VS, Neurochecks OOB with assistance. Continue PT. DC planning IS L spine XR reveals good placement of hardware, good alignment of spine. Lumbar lordosis improved. DC instructions were given. No lifting, No bending, No driving. Keep incision dry. May shower in two days. Appreciate IM care. Alfonso Dennis MD
[2019-09-02] MEDS: Magnesium Hydroxide LIQ* 30 ML UDC PO PRN (17:42)
[2019-09-03] MEDS: HYDROcodone/ACETAMIN 5-325 MG* 1 TAB PO PRN ×4 (03:07→22:23)
--- NOTE | 2019-09-03 04:34 | PN ---
Progress Note - Progress Note Date of Service: 09/03/19 SOAP: Subjective: [] No events ON. Ambulates. No AGUILAR. Tolerates PO well. Voids. Objective: []VSS, Afebrile. Wounds s,c,d. AAOx3 DEMETRIA, CN II-XII grossly intact Motor 5/5 all extremities Sensory grossly intact to light touch Assessment: []83 yof POD#6 Left L3-4 MIS TLIF with L4-5 instrumentation revision Plan: [] Monitor VS, Neurochecks OOB with assistance. Continue PT. DC planning IS Ok to DC from NS standpoint. Awaiting rehab bed. Appreciate IM care. Alfonso Dennis MD
[2019-09-03] MEDS: Heparin VIAL(*) 5000 UNITS/ML VIAL (FIVE THOUSAND) SUBCUT SCH ×3 (05:08→21:51)
[2019-09-03 05:32] LABS: ABS Eosinophils 0.3 10^3/ul (0-0.6); ABS Lymphocytes 1.4 10^3/ul (1.0-4.8); ABS Monocytes 0.7 10^3/ul (0-0.8); ABS Neutrophils 2.6 10^3/ul (1.5-7.7); Eosinophil % 6.4 %; Hematocrit 24 % (35-47); Hemoglobin 8.4 g/dL (12.0-16.0); Lymphocyte % 27.2 %; Mean Corpuscular HGB Conc 34 g/dL (31-36); Mean Corpuscular Hemoglobin 32 pg (27-31); Mean Corpuscular Volume 95 fL (80-97); Mean Platelet Volume 7.4 fL (7.4-10.4); Platelet Count 287 10^3/uL (150-450); Red Blood Count 2.58 10^6 /uL (3.70-4.87); Red Cell Distribution Width 13 % (10-15)
[2019-09-03] MEDS: Lactobacillus Acidophilus* 1 TAB PO SCH (07:24)
[2019-09-03] MEDS: Diazepam TAB(*) 5 MG PO PRN ×3 (07:25→22:23)
[2019-09-03] MEDS: Cholecalciferol TAB* 1000 UNITS PO SCH ×2 (07:26→20:01)
[2019-09-03] MEDS: Polyethylene Glycol 3350* 17 GM PACKET PO SCH (07:26)
[2019-09-03] MEDS: Cetirizine* 10 MG TAB PO SCH (07:26)
[2019-09-03] MEDS: Ascorbic Acid TAB* 500 MG PO SCH ×2 (07:26→20:01)
[2019-09-03] MEDS: Aspirin EC TAB* 81 MG TAB.EC PO SCH (07:26)
[2019-09-03] MEDS: hydrALAZINE TAB* 10 MG PO SCH ×3 (07:28→20:01)
[2019-09-03] MEDS: Losartan TAB* 25 MG PO SCH (07:28)
--- NOTE | 2019-09-03 13:58 | PN ---
Subjective Date of Service: 09/03/19 Interval History: Ms. Gray is feeling okay today. She is still having significant pain with movement, but pain meds are helping. Denies CP or SOB. She is still hoping to get into [facility] for [facility] as that is close to her family. No concerns from nursing. Family History: Unchanged from Admission Social History: Unchanged from Admission Past Medical History: Unchanged from Admission Objective Active Medications: Acetaminophen (Tylenol Tab*) 650 mg PO Q4H PRN MILD PAIN or TEMP > 100.4 Hydrocodone Bitart/Acetaminophen ([place] 5-325 Tab*) 1 tab PO Q4H PRN PAIN - MODERATE Hydrocodone Bitart/Acetaminophen ([place] 5-325 Tab*) 2 tab PO Q4H PRN PAIN - SEVERE Ascorbic Acid (Vitamin C Tab*) 500 mg PO BID [facility] Aspirin (Aspirin Ec Tab*) 81 mg PO QAM SHANDRA Cetirizine HCl (Zyrtec*) 10 mg PO QAM SHANDR[facility] Cholecalciferol (Vitamin D Tab*) 1,000 units PO BID [facility] Diazepam (Valium Tab(*)) 5 mg PO Q8H PRN MUSCLE SPASMS Heparin Sodium (Porcine) (Heparin Vial(*)) 5,000 units SUBCUT Q8HR [facility] Hydralazine HCl (Apresoline Tab*) 10 mg PO TID [facility] Lactobacillus Rhamnosus (Lactobacillus Acidophilus*) 1 tab PO QAM [facility] Losartan Potassium (Cozaar Tab*) 100 mg PO QAM [facility] Magnesium Hydroxide (Milk Of Magnesia Liq*) 30 ml PO DAILY PRN CONSTIPATION Ondansetron HCl (Zofran Inj*) 4 mg IV Q6H PRN NAUSEA/VOMITING Polyethylene Glycol/Electrolytes (Miralax*) 17 gm PO DAILY [facility] Vital Signs - 8 hr 09/03/19 09/03/19 09/03/19 07:25 07:26 07:30 Temperature 97.3 F Pulse Rate 72 Respiratory 18 18 16 Rate Blood Pressure 153/58 (mmHg) O2 Sat by Pulse 100 Oximetry 09/03/19 09/03/19 09/03/19 07:34 07:36 11:10 Temperature 98.1 F Pulse Rate 82 Respiratory 18 16 Rate Blood Pressure 121/42 (mmHg) O2 Sat by Pulse 100 98 Oximetry Oxygen Devices in Use Now: None Appearance: Elderly female lying in bed in NAD Ears/Nose/Mouth/Throat: Mucous Membranes Moist Neck: NL Appearance and Movements; NL JVP, Trachea Midline Respiratory: Symmetrical Chest Expansion and Respiratory Effort, Clear to Auscultation Cardiovascular: NL Sounds; No Murmurs; No JVD, RRR Abdominal: NL Sounds; No Tenderness; No Distention Extremities: No Edema Neurological: Alert and Oriented x 3 Lines/Tubes/Other Access: Clean, Dry and Intact Peripheral IV Nutrition: Taking PO's Result Diagrams: 09/03/19 05:00 08/31/19 05:33 Assess/Plan/Problems-Billing Assessment: Ms. Gray is an 83 yo F with PMH of HTN and GERD; who [place] [facility] [place], now postop and recovering well. - Patient Problems (1) Status post lumbar surgery Code(s): Z98.890 - OTHER SPECIFIED POSTPROCEDURAL STATES Comment: - POD #6 L3-4 TLIF - Management per Neurosurgery - Up with activity per Dr. Dennis - Continue [place], bowel regimen (2) Acute blood loss anemia Code(s): D62 - ACUTE POSTHEMORRHAGIC ANEMIA Comment: - H&H stable - Secondary to surgery (3) Hypertension Code(s): I10 - ESSENTIAL (PRIMARY) HYPERTENSION Comment: - Normotensive - Continue losartan, hydralazine (4) DVT prophylaxis Code(s): Z29.9 - ENCOUNTER FOR PROPHYLACTIC MEASURES, UNSPECIFIED Comment: - Heparin per Neurosurgery (5) Full code status Code(s): Z78.9 - OTHER SPECIFIED HEALTH STATUS Comment: Status and Disposition: Inpatient. Cleared for d/c by Neurosurgery. Awaiting [facility] bed. Attending: Elsa Bennett
[2019-09-04] MEDS: Heparin VIAL(*) 5000 UNITS/ML VIAL (FIVE THOUSAND) SUBCUT SCH ×3 (05:41→22:20)
[2019-09-04] MEDS: HYDROcodone/ACETAMIN 5-325 MG* 1 TAB PO PRN (05:41)
[2019-09-04] MEDS: Lactobacillus Acidophilus* 1 TAB PO SCH (09:11)
[2019-09-04] MEDS: hydrALAZINE TAB* 10 MG PO SCH ×3 (09:11→20:15)
[2019-09-04] MEDS: Losartan TAB* 25 MG PO SCH (09:12)
[2019-09-04] MEDS: Cetirizine* 10 MG TAB PO SCH (09:12)
[2019-09-04] MEDS: Ascorbic Acid TAB* 500 MG PO SCH ×2 (09:12→20:15)
[2019-09-04] MEDS: Aspirin EC TAB* 81 MG TAB.EC PO SCH (09:12)
[2019-09-04] MEDS: Cholecalciferol TAB* 1000 UNITS PO SCH ×2 (09:12→20:15)
[2019-09-04] MEDS: Polyethylene Glycol 3350* 17 GM PACKET PO SCH ×2 (09:12→09:14)
[2019-09-04] MEDS: Diazepam TAB(*) 5 MG PO PRN (10:16)
[2019-09-04] MEDS ORDERED: HYDROcodone/ACETAMIN 5-325 MG* 1 TAB PO PRN (15:08)
--- NOTE | 2019-09-04 16:29 | PN ---
Subjective Date of Service: 09/04/19 Interval History: Ms. Gray states she has pain rated at 6/10 in the low back. She has been up walking in the hallways today and reports no overt difficulty. She had a loose BM yesterday, but reports that she had control of this. She has no other complaints today. She is eagerly awaiting discharge to [facility]. Family History: Unchanged from Admission Social History: Unchanged from Admission Past Medical History: Unchanged from Admission Objective Active Medications: Acetaminophen (Tylenol Tab*) 650 mg PO Q4H PRN PRN Reason: MILD PAIN or TEMP > 100.4 Hydrocodone Bitart/Acetaminophen ([place] 10/325 (Nf)) 1 tab PO Q4H PRN PRN Reason: PAIN - SEVERE Hydrocodone Bitart/Acetaminophen ([place] 5-325 Tab*) 1 tab PO Q4H PRN PRN Reason: PAIN - MODERATE Last Admin: 09/04/19 15:40 Dose: 1 tab Ascorbic Acid (Vitamin C Tab*) 500 mg PO BID [facility] Last Admin: 09/04/19 09:12 Dose: 500 mg Aspirin (Aspirin Ec Tab*) 81 mg PO [facility] Last Admin: 09/04/19 09:12 Dose: 81 mg Cetirizine HCl (Zyrtec*) 10 mg PO [facility] Last Admin: 09/04/19 09:12 Dose: 10 mg Cholecalciferol (Vitamin D Tab*) 1,000 units PO BID [facility] Last Admin: 09/04/19 09:12 Dose: 1,000 units Diazepam (Valium Tab(*)) 5 mg PO Q8H PRN PRN Reason: MUSCLE SPASMS Last Admin: 09/04/19 10:16 Dose: 5 mg Heparin Sodium (Porcine) (Heparin Vial(*)) 5,000 units SUBCUT Q8HR [facility] Last Admin: 09/04/19 15:40 Dose: 5,000 units Hydralazine HCl (Apresoline Tab*) 10 mg PO TID [facility] Last Admin: 09/04/19 15:32 Dose: Not Given Lactobacillus Rhamnosus (Lactobacillus Acidophilus*) [facility] Admin: 09/04/19 09:11 Dose: 1 tab Losartan Potassium (Cozaar Tab*) 100 mg PO [facility] Last Admin: 09/04/19 09:12 Dose: 100 mg Magnesium Hydroxide (Milk Of Magnesia Liq*) 30 ml PO DAILY PRN PRN Reason: CONSTIPATION Last Admin: 09/02/19 17:42 Dose: 30 ml Ondansetron HCl (Zofran Inj*) 4 mg IV Q6H PRN PRN Reason: NAUSEA/VOMITING Last Admin: 08/30/19 17:14 Dose: 4 mg Polyethylene Glycol/Electrolytes (Miralax*) 17 gm PO DAILY [facility] Last Admin: 09/04/19 09:14 Dose: Not Given Vital Signs: Temp Pulse Resp BP Pulse Ox 98.1 F 78 16 120/46 100 09/04/19 15:06 09/04/19 15:06 09/04/19 15:40 09/04/19 15:06 09/04/19 15:06 Oxygen Devices in Use Now: None Appearance: Ms. Gray is an older white female who is sitting up in bed. She appears mildly uncomfortably and has antalgic, slow movements, but appears to be in no acute distress. Eyes: No Scleral Icterus, PERRLA Ears/Nose/Mouth/Throat: NL Teeth, Lips, Gums, Clear Oropharnyx, Mucous Membranes Moist Neck: NL Appearance and Movements; NL JVP, Trachea Midline Respiratory: Symmetrical Chest Expansion and Respiratory Effort, Clear to Auscultation Cardiovascular: RRR, No Edema, - - systolic murmur Abdominal: NL Sounds; No Tenderness; No Distention, No Hepatosplenomegaly Extremities: No Edema, No Clubbing, Cyanosis, - - CDI dressing in place bilaterally on lumbar area, as well as at midline; sensation intact distally to b/l LE Neurological: Alert and Oriented x 3 Result Diagrams: 09/03/19 05:00 08/31/19 05:33 Microbiology and Other Data: Microbiology 08/28/19 16:50 Nasal Screen MRSA (PCR) - Final Nasal Mrsa Not Detected Assess/Plan/Problems-Billing Assessment: Ms. Gray is an 83 yo F with PMH of HTN and GERD; who presented to [facility] [place] for an elective lumbar surgery, now postop and recovering well. - Patient Problems (1) Status post lumbar surgery Comment: - TLIF 08/28 - Management per Neurosurgery - Activity as tolerated per Dr. Dennis - Continue [place], bowel regimen - neurosurgery has cleared for d/c; awaiting LU[facility]ANO placement (2) Hypertension Comment: - Normotensive - Continue losartan, hydralazine (3) Acute blood loss anemia Comment: - H&H stable - Secondary to surgery (4) DVT prophylaxis Comment: - Heparin per Neurosurgery (5) Full code status Comment: Status and Disposition: Inpatient. Cleared for d/c by Neurosurgery. Awaiting [facility] bed.
[2019-09-04] MEDS: Ondansetron INJ* 2 MG/ML VIAL IV PRN (16:55)
[2019-09-04] MEDS: Hydrocodone/Acetamin 10/325 MG 1 TAB PO PRN (20:30)
--- NOTE | 2019-09-04 23:26 | PN ---
Progress Note - Progress Note Date of Service: 09/04/19 SOAP: Subjective: []No events ON. Ambulates. Feels that her ambility to ambulate has significantly improved compared with preop. No AGUILAR. Tolerates PO well. Voids. Wants to go home if possible. Objective: [] VSS, Afebrile. Wounds s,c,d. Dressing changed. AAOx3 DEMETRIA, CN II-XII grossly intact Motor 5/5 all extremities Sensory grossly intact to light touch Assessment: [] 83 yof POD#7 Left L3-4 MIS TLIF with L4-5 instrumentation revision Plan: [] Monitor VS, Neurochecks OOB with assistance. Continue PT. DC planning IS Ok to DC from NS standpoint. Awaiting rehab bed. Full instructions were given to patient. No bending, No lifting, No driving. Keep incision dry. May shower after two days. Follow up in the office in 1 month. Appreciate IM care. Alfonso Dennis MD
[2019-09-05] MEDS: Hydrocodone/Acetamin 10/325 MG 1 TAB PO PRN ×2 (05:48→10:05)
[2019-09-05] MEDS: Heparin VIAL(*) 5000 UNITS/ML VIAL (FIVE THOUSAND) SUBCUT SCH ×2 (05:49→14:19)
[2019-09-05] MEDS: Cholecalciferol TAB* 1000 UNITS PO SCH (08:47)
[2019-09-05] MEDS: Losartan TAB* 25 MG PO SCH (08:48)
[2019-09-05] MEDS: hydrALAZINE TAB* 10 MG PO SCH ×2 (08:48→14:19)
[2019-09-05] MEDS: Polyethylene Glycol 3350* 17 GM PACKET PO SCH (08:48)
[2019-09-05] MEDS: Cetirizine* 10 MG TAB PO SCH (08:48)
[2019-09-05] MEDS: Lactobacillus Acidophilus* 1 TAB PO SCH (08:48)
[2019-09-05] MEDS: Ascorbic Acid TAB* 500 MG PO SCH (08:48)
[2019-09-05] MEDS: Aspirin EC TAB* 81 MG TAB.EC PO SCH (08:48)
[2019-09-05 11:28] VITALS: BP 120/50
--- NOTE | 2019-09-05 15:33 | DS ---
CC: Dr. Cory Sanford; Dr. Pablo Dennis * DISCHARGE SUMMARY: DATE OF ADMISSION: 08/28/19 DATE OF DISCHARGE: 09/05/19 PRIMARY CARE PROVIDER: Cory Sanford MD OTHER PROVIDER: Pablo Dennis MD ATTENDING PHYSICIAN: Romelia Ramírez MD * (dictated by MIKE Palmer). PRIMARY DIAGNOSES: 1. Status post L3-L4 TLIF PEEK, L4-L5 revision. 2. Postoperative anemia. SECONDARY DIAGNOSES: 1. Hypertension. 2. Left lower extremity radiculopathy. 3. Gastroesophageal reflux disease. STUDIES WHILE IN THE HOSPITAL: Lumbar x-ray, impression: Lumbar fusion as above. Compression deformity of L1 resulting in 20% vertebral body height loss, is new from April 2019. Multilevel spondylosis as above. DISCHARGE MEDICATIONS: Home medications: 1. Ascorbic acid 500 mg p.o. b.i.d. 2. Aspirin 81 mg p.o. daily. 3. Calcium, magnesium, zinc 2 tabs p.o. b.i.d. 4. Cholecalciferol 1000 units p.o. b.i.d. 5. Cranberry 400 mg p.o. b.i.d. 6. Hydralazine 10 mg p.o. t.i.d. 7. Ibuprofen 200 mg p.o. q.4 hours p.r.n. 8. Lactobacillus acidophilus 1 tab p.o. daily. 9. Loratadine 10 mg p.o. daily. 10. Losartan 100 mg p.o. daily. 11. Tylenol 1000 mg p.o. q.6 hours p.r.n. 12. Vitamin E 400 units p.o. b.i.d. New home medications: 1. Hydrocodone/acetaminophen 5/325 one tab p.o. q.4 hours p.r.n., MDD 6. 2. Magnesium hydroxide 30 mL p.o. daily p.r.n. 3. Polyethylene glycol 17 g p.o. daily p.r.n. HISTORY OF PRESENT ILLNESS/HOSPITAL COURSE: Ms. Gray is an 83-year-old female with a past medical history of hypertension and left lower extremity radiculopathy, who presented to the ER for an elective L3-L4 TLIF PEEK with bone graft with Dr. Dennis on 08/28/19 due to chronic back pain and left- sided radiculopathy. Subsequently, she got a revision of the L4-L5 instrumentation, which was also placed by Dr. Dennis last year. She tolerated the procedure well and was admitted to the hospital. She received pain management as well as bowel regimen while inpatient. She worked with Physical Therapy and Occupational Therapy. We recommended acute physical therapy. The patient has accepted placement at [facility]. She is seen today and complains of itching in the back area. She has a mild pain rated at 3/10. She was up walking in the halls yesterday and has been up to the bathroom and back today using her rolling walker. She wears her brace. She is eating and drinking well. She has control of her bowel and bladder function and her last bowel movement was yesterday. She denies saddle anesthesia. The patient appears to have a mild baseline anemia. On postop day 1, the patient was slightly more anemic than in the past, this was likely the result of postoperative anemia. Her hemoglobin and hematocrit have been stable throughout her stay and she denies shortness of breath, dizziness, lightheadedness, presyncope or any other signs of anemia. It is recommended that she repeat her CBC in approximately 5 to 7 days to assess for improvement in anemia. Ms. Gray is stable for discharge home. PHYSICAL EXAMINATION: Vital Signs: Temperature 98.3 oral, heart rate 74, respiratory rate 20, oxygen saturation 95% on room air, blood pressure 120/50. General: Ms. Gray is a well-developed, well-nourished older white female, who is sitting up in bed with the lower extremities at the floor. She appears to be in no acute distress. She is pleasant and cooperative. HEENT: PERRL. EOMI. Visual blandon are grossly intact. Sclerae is nonicteric without injection. Hearing is grossly intact. Oral mucous membranes are moist. There are no lesions. The pharynx is clear. The palate elevates symmetrically and the tongue is at midline. Cardiovascular: Regular rate and rhythm with S1, S2 present. There is a systolic murmur noted without rubs, clicks, or gallops. There is no JVD. There is trace bilateral lower extremity edema. Pulmonary: Symmetrical chest expansion without use of accessory muscles. Lungs: Clear to auscultation bilaterally with mildly diminished breath sounds throughout. No wheeze, rhonchi, or rales. Abdomen: Bowel sounds in all quadrants. Soft and nontender to palpation. Musculoskeletal: Full range of motion with 5/5 strength and some mild appearing generalized weakness. Neuro: The patient is awake. She is alert and oriented x2. Cranial nerves II through XII are grossly intact. DISCHARGE PLAN: Ms. Gray will be discharged to [facility]. CONDITION: Good. DIET: Heart healthy. ACTIVITY: 1. No bending, lifting, driving. 2. Keep incision dry, may shower after 2 days. EDUCATION: 1. Repeat CBC in 5 to 7 days to monitor and assess anemia. 2. Follow up with primary care provider in 4 to 7 days. 3. Follow up with Dr. Dennis in the office in 1 month. 4. Return to the ER or nearest hospital if you experience any return or worsening of symptoms, increased lumbar pain, surgical incision site drainage or erythema. Decreased sensation in the groin/buttocks or loss of bowel or bladder function, high fevers or chills, return for any other concerning signs or symptoms. This is a summarized report of a complex medical history and hospital stay. For further details, please see the entire medical record. TIME SPENT: Approximately 35 minutes was spent on this discharge, greater than half that time was spent [id number] with the patient discussing discharge plans and instructions. MIKE URBANO [id number]/[facility] #: [id number] [place]
== END 2019-09-05 15:35 | DRG 303 ==
LOC: AA 05:32 → SSU 14:50
PROVIDERS: ADMIT Neurological Surgery; ATTEND Internal Medicine
PROC: 0SP004Z Removal of Internal Fixation Device from Lumbar Vertebral Joint, Open Approach (ICD-10-PCS; 2019-08-28)
PROC: 0SG00J1 Fusion of Lumbar Vertebral Joint with Synthetic Substitute, Posterior Approach, Posterior Column, Open Approach (ICD-10-PCS; 2019-08-28)
PROC: 0QB20ZZ Excision of Right Pelvic Bone, Open Approach (ICD-10-PCS; 2019-08-28)
PROC: 0SB20ZZ Excision of Lumbar Vertebral Disc, Open Approach (ICD-10-PCS; 2019-08-28)
PROC: 4A11X4G Monitoring of Peripheral Nervous Electrical Activity, Intraoperative, External Approach (ICD-10-PCS; 2019-08-28)
PROC: 8E09XBZ Computer Assisted Procedure of Head and Neck Region (ICD-10-PCS; 2019-08-28)
PROC: 00U20KZ Supplement Dura Mater with Nonautologous Tissue Substitute, Open Approach (ICD-10-PCS; 2019-08-28)
PROC: 0SG00AJ Fusion of Lumbar Vertebral Joint with Interbody Fusion Device, Posterior Approach, Anterior Column, Open Approach (ICD-10-PCS; principal; 2019-08-28 07:30)
DX: M41.9 Scoliosis, unspecified (principal); D62 Acute posthemorrhagic anemia; M48.062 Spinal stenosis, lumbar region with neurogenic claudication; M51.16 Intervertebral disc disorders with radiculopathy, lumbar region; K21.9 Gastro-esophageal reflux disease without esophagitis; F32.9 Major depressive disorder, single episode, unspecified; G89.29 Other chronic pain; L29.9 Pruritus, unspecified; E78.00 Pure hypercholesterolemia, unspecified; M47.26 Other spondylosis with radiculopathy, lumbar region; N18.2 Chronic kidney disease, stage 2 (mild); I12.9 Hypertensive chronic kidney disease with stage 1 through stage 4 chronic kidney disease, or unspecified chronic kidney disease; Z90.710 Acquired absence of both cervix and uterus; Z88.1 Allergy status to other antibiotic agents; Z79.82 Long term (current) use of aspirin; Z79.899 Other long term (current) drug therapy
CPT/HCPCS: 36415; 72100; 76000; 80048; 85025; 87641; 88300; A9270-GY; C1713; C1776; C9359; J0690; J1170; J1644; J2250; J2405; J2704; J3010